=== PATIENT | male | born 1960 | race Caucasian/White ===

== ENCOUNTER 2016-08-14 09:30 | Outpatient (CLI) | payer OTHER ==
[~2016-08-14] VITALS: Ht 175.3 cm; Wt 68.0 kg
[~2016-08-14 09:30] MED LIST: ASPI-992 PO; ASPI1TAB PO; CYCL10TA45 GT
[2016-08-14] MEDS ORDERED: BUPIVACAINE 0.5% 30 ML (SENSORCAINE) VIAL ONE (09:32)
[2016-08-14] MEDS ORDERED: LIDOCAINE 1% INJ 20 ML (XYLOCAINE) VIAL ONE (09:32)
[2016-08-14] MEDS ORDERED: TRIAMCINOLONE ACET (KENALOG-40) 40 MG/ML 1 ML VIAL ONE (09:32)
[2016-08-14 09:43] VITALS: BP 135/76
[2016-08-14 10:36] VITALS: BP 139/84
--- NOTE | 2016-08-14 12:46 | Pain Medicine-Procedure ---
Procedure Pre-Op/Post-Op Diagnosis Diagnosis: spondylosis without myelopathy, thoracic Indications for Operation Mid back pain Attending Surgeon Stacy Procedure Date of Service: Aug 14, 2016 PROCEDURE: Bilateral thoracic medial branch block at T8 to T11 under fluoroscopic guidance. PROCEDURE DETAILS: After obtaining an informed consent from the patient, the patient's chart was reviewed. The patient was brought to the procedure room and placed in a prone position. The back was prepped with antiseptic solution, and under fluoroscopic guidance the junction of the superior articular process and transverse process on the right at T8, T9, T10, and T11 was identified. 0.5 cc of 1% Lidocaine was used to anesthetize the skin. A 25 gauge 3.5 inch spinal needle was inserted through the skin under fluoroscopic guidance until it came in touch with the bone at the junction between the superior articular process and transverse process at each level. The exact steps were repeated for the left side. After needle aspiration,80 mg of kenalog total was injected in equal alliquots followed by 0.5 cc of 0.5% bupivacaine at each. The patient tolerated the procedure well. The needles were flushed and removed, and a Band- Aide was applied. Complications None ELBA MCMAHAN MD Aug 14, 2016 12:46 pm
== END 2016-08-14 10:38 | disposition home or self-care (01) ==
LOC: CARD 09:30
PROVIDERS: ATTEND Pain Medicine Pain Medicine
DX: M47.814 Spondylosis without myelopathy or radiculopathy, thoracic region (principal); Z79.899 Other long term (current) drug therapy
CPT/HCPCS: 64490; 64491; 64492

== ENCOUNTER 2016-09-16 22:02 | Emergency (ER) | payer SELFPAY ==
[~2016-09-16] VITALS: Ht 175.3 cm; Wt 71.7 kg
[2016-09-16] MEDS ORDERED: morphine INJ 10 MG/ML 1ML (SYR OR VIAL) IM ONE (22:15)
--- NOTE | 2016-09-16 22:15 | ED Back Pain ---
General Chief Complaint: Back Problems Stated Complaint: BACK PAIN Source of Information: Patient Exam Limitations: No Limitations History of Present Illness Time Seen by Provider: 22:12 Initial Comments To ER with left-sided upper lumbar/lower thoracic back pain worse than usual for 2 days. This is been ongoing for many months. He sees Dr. Kumar and received an epidural steroid injection about 3 weeks ago. Denies fevers or chills. States that the pain chronically radiates down his left leg. He denies any recent injuries or any may have worsened his symptoms recently. No loss of bowel or bladder control. He is currently on Zanaflex, just finished a course of oral steroids he states, is on meloxicam. Location: Lumbar Spine Severity: Moderate Associated Symptoms: lower back pain Allergies and Home Medications Allergies Coded Allergies: No Known Drug Allergies (Unverified , 06/08/13) Home Medications Aspirin/Acetaminophen/Caffeine 1 Each Tablet 2 EACH PO PRN (Reported) Constitutional: see HPINo chills EENTM: see HPI Respiratory: no symptoms reported Cardiovascular: no symptoms reported Genitourinary: no symptoms reported Musculoskeletal: see HPI back pain Skin: no symptoms reported Past Kcbypjl-Kbyivz-Qcxnvf Hx Patient Social History Alcohol Use: Denies Use Recreational Drug Use: No Smoking Status: Current Everyday Smoker Type Used: Cigarettes Recent Foreign Travel: No Contact w/Someone Who Travel: No Recent Hopitalizations: No Surgeries HX Surgeries: Yes (right foot surgery) Respiratory Hx Respiratory Disorders: No Cardiovascular Hx Cardiac Disorders: No Neurological Hx Neurological Disorders: No Reproductive System Hx Reproductive Disorders: No Genitourinary Hx Genitourinary Disorders: No Gastrointestinal Hx Gastrointestinal Disorders: No Musculoskeletal Hx Musculoskeletal Disorders: Yes (dgenerative arthritis) Musculoskeletal Disorders: Chronic Back Pain Endocrine Hx Endocrine Disorders: No HEENT HX ENT Disorders: No Cancer Hx Cancer: No Psychosocial Hx Psychiatric Problems: No Integumentary HX Skin/Integumentary Disorder: No Physical Exam Vital Signs Capillary Refill : General Appearance: No Apparent Distress WD/WN HEENT: PERRL/EOMI TMs Normal Neck: Full Range of Motion Normal Inspection Respiratory: No Accessory Muscle Use No Respiratory Distress Gastrointestinal: Normal Bowel Sounds Non Tender Soft Back: Normal InspectionNo Decreased Range of Motion, No Vertebral Tenderness Extremity: Normal Capillary Refill Normal Inspection Neurologic/Psychiatric: Alert Oriented x3 Skin: Normal Color Warm/Dry Progress/Results/Core Measures Results/Orders My Orders Orders-TUTTLE,PETER J WHITE MIXING OPERATOR Morphine Injection (Morphine Injection (09/16/16 22:15) Departure Impression Impression: Primary Impression: Chronic back pain Qualified Code: M54.6 - Pain in thoracic spine Disposition: 01 HOME, SELF-CARE Condition: Stable Departure-Patient Inst. Decision time for Depature: 22:14 Referrals: JANE MUÑOZ DO (PCP) Primary Care Physician LISA WOLFE (Family) Primary Care Physician Patient Instructions: Low Back Pain (DC) Add. Discharge Instructions: 1. Call Dr. Kumar tomorrow for further guidance on pain control 2. Continue current medications 3. All discharge instructions reviewed with patient and/or family. Voiced understanding. AMAURY TUTTLE APRN Sep 16, 2016 22:15
[2016-09-16 22:29] VITALS: BP 0/0
== END 2016-09-16 22:29 | disposition home or self-care (01) ==
LOC: EDUNIT# 22:02 → ER 22:04
DX: M54.6 Pain in thoracic spine (principal); M54.5 Low back pain; G89.29 Other chronic pain; F17.210 Nicotine dependence, cigarettes, uncomplicated; Z79.899 Other long term (current) drug therapy
CPT/HCPCS: 96372; 99281

== ENCOUNTER → 2016-09-26 | Outpatient (CLI) | payer SELFPAY ==
[~2016-09-26] MED LIST changes: +BACL20TA PO; +GABA300C PO; +METH4TAB PO; +TRAM50TA2 PO
--- OUTSIDE RECORDS SUMMARY | 2016-09-26 10:03 | XMS REPORT | Continuity of Care Document ---
Author Author [facility] Organization [facility] Address Unknown Phone Unavailable Care Team Providers Care Air Boatswain Name Role Phone [facility] PCP Insurance Providers Payer Name Policy Number Subscriber Name Relationship Self Pay Behzad Meza 18 Self / Same As Patient Advance Directives Directive Response Recorded Date/Time Advance Directives No 09/16/16 10:05pm Health Care Power of [place] Laborer No 09/16/16 10:05pm Organ Donor Yes 09/16/16 10:05pm Resuscitation Status Full Code 09/16/16 10:05pm Chief Complaint and Reason for Visit Chief Complaint Back Problems Reason for Visit Chronic back pain Problems Active Problems Medical Problem Onset Date Status Abrasion Unknown Acute Chest pain Unknown Acute Chronic back pain Unknown Acute Headache Unknown Acute Medications Current Home Medications Medication Dose Units Route Directions Days/Qty Instructions Start Date Aspirin/Acetaminophen/Caffeine 1 Each 2 Each Oral As Needed 01/23/16 Past Home Medications Medication Directions Ordered Status Aspirin/Acetaminophen/Caffeine 1 Tab Tablet, 1 Tab Oral as needed for Discontinued Cyclobenzaprine Hcl 10 Mg Tablet, 10 Mg G Tube 08/15/13 Discontinued Social History Social History Problem Response Recorded Date/Time Alcohol Use Denies Use 01/23/2016 7:30am Recreational Drug Use No 01/23/2016 7:30am Recent Foreign Travel No 09/16/2016 10:05pm Recent Infectious Disease Exposure No 09/16/2016 10:05pm Hospitalization with Isolation Denies 09/16/2016 10:05pm Smoking Status Current Everyday Smoker 09/16/2016 10:05pm Do you dip or chew tobacco? No 01/23/2016 7:30am Type Used Cigarettes 09/16/2016 10:05pm Recent Hopitalizations No 09/16/2016 10:05pm Hospitalization with Isolation Denies 09/16/2016 10:05pm Query Response Start Date Stop Date Smoking Status Current Everyday Smoker Hospital Discharge Instructions No hospital discharge instructions. Plan of Care Discharge Date 09/16/16 10:29pm Disposition 01 HOME, SELF-CARE Condition at Discharge Stable Instructions/Education Provided Low Back Pain (DC) Prescriptions See Medication Section Referrals JANE MUÑOZ DO - Primary Care Physician LISA WOLFE - Primary Care Physician Additional Instructions/Education 1. Call Dr. Kumar tomorrow for further guidance on pain control 2. Continue current medications 3. All discharge instructions reviewed with patient and/or family. Voiced understanding. Functional Status No functional status results. Allergies, Adverse Reactions, Alerts No known allergies. Immunizations No immunization records. Vital Signs Acute Vital Signs Vital Response Date/Time Temperature (Fahrenheit) 97.7 degrees F (97.6 - 99.5) 09/16/2016 10:05pm Temperature (Calculated Celsius) 36.35736 degrees C (36.4 - 37.5) 09/16/2016 10:05pm Temperature Source Tympanic 09/16/2016 10:05pm Pulse Rate (adult) 0 bpm (60 - 90) 09/16/2016 10:29pm Respiratory Rate 0 bpm (12 - 24) 09/16/2016 10:29pm O2 Sat by Pulse Oximetry 0 % (88 - 100) 09/16/2016 10:29pm Blood Pressure 0/0 mm Hg 09/16/2016 10:29pm Blood Pressure Mean 106 mm Hg 09/16/2016 10:05pm Pain Numeric Pain Scale 8 09/16/2016 10:29pm Height (Feet) 5 feet 09/16/2016 10:05pm Height (Inches) 9 inches 09/16/2016 10:05pm Height (Calculated Centimeters) 175.562255 cm 09/16/2016 10:05pm Weight (Pounds) 158 pounds 09/16/2016 10:05pm Weight (Calculated Kilograms) 71.103778 kilograms 09/16/2016 10:05pm Capillary Refill Capillary Refill Less Than 3 Seconds 09/16/2016 10:05pm Height 5 ft 9 in Weight 158 lb Body Mass Index 23.3 kg/m^2 Results No known relevant diagnostic tests, laboratory data and/or discharge summary. Procedures No known history of procedures. Encounters Encounter Location Arrival/Admit Date Discharge/Depart Date Attending Provider Departed Emergency Room [facility] 09/16/16 10:04pm 08/04 10:29pm AMAURY TUTTLE APRN Recent Diagnosis
--- NOTE | 2016-09-26 11:40 | Diagnostic Imaging Report ---
PROCEDURE: MRI lumbar spine. TECHNIQUE: Multiplanar, multisequence MRI of the lumbar spine was performed without contrast. INDICATION: Back pain. FINDINGS: The alignment of the lumbar spine is normal. The vertebral body heights are well-maintained. There is no spondylolysis or spondylolisthesis. No fractures are identified. Conus medullaris is seen at L1 and is normal in appearance. There is some minimal annular bulging at L3-4 and L4-5. There is no focal disc extrusion or high-grade spinal stenosis. There is mild lower lumbar hypertrophic degenerative facet disease. The abdominal aorta is nonaneurysmal. There are no other focal soft tissue abnormalities. IMPRESSION: Mild annular bulging at L3-4 and L4-5 where there is slight effacement of the ventral thecal sac. There is also some lower lumbar hypertrophic degenerative facet disease. There is, however, no focal disc extrusion or evidence of high-grade spinal stenosis. Dictated by: Dictated on workstation # [id number]
--- NOTE | 2016-09-26 11:54 | Diagnostic Imaging Report ---
INDICATION: Chronic back and leg pain with numbness and tingling. Comparison is made with prior examination 04/11/16. FINDINGS: The alignment of thoracic spine is normal. The vertebral body heights are well-maintained. There is no fracture or traumatic subluxation. The visualized portions of the spinal cord are normal in signal intensity and morphology. Conus medullaris seen at L1 is normal in appearance. There is no focal disc extrusion or high-grade spinal stenosis. Subarachnoid space both anterior and posterior cord is well-maintained. There are otherwise mild degenerative changes. IMPRESSION: Mild lower thoracic spondylosis otherwise unremarkable Dictated by: Dictated on workstation # [id number]
== END ==
LOC: RAD 10:00
PROVIDERS: ATTEND Pain Medicine Pain Medicine
DX: M43.04 Spondylolysis, thoracic region (principal); M51.36 Other intervertebral disc degeneration, lumbar region
CPT/HCPCS: 72146; 72148

== ENCOUNTER 2016-11-28 21:40 | Emergency (ER) | payer SELFPAY ==
[~2016-11-28] VITALS: Ht 175.3 cm; Wt 71.7 kg
[~2016-11-28 21:40] MED LIST changes: -BACL20TA PO; -GABA300C PO; -METH4TAB PO; -TRAM50TA2 PO
[2016-11-28] MEDS ORDERED: BACL20TA PO (21:52)
[2016-11-28] MEDS ORDERED: GABA300C PO (21:52)
[2016-11-28] MEDS ORDERED: TRAM50TA2 PO (21:52)
[2016-11-28] MEDS ORDERED: METH4TAB PO (22:09)
--- NOTE | 2016-11-28 22:10 | ED Back Pain ---
General Chief Complaint: Back Problems Stated Complaint: BACK PAIN Nursing Triage Note: patient reports chronic back pain, patient reports he is being treated by a pain specialist and the medications he is prescribed isn't helping. Nursing Sepsis Screen: No Definite Risk Source of Information: Patient History of Present Illness Time Seen by Provider: 21:55 Initial Comments PT ARRIVES VIA POV FROM HOME C/O CHRONIC BACK PAIN NO INJURY NO PARESTHESIAS OR MOTOR DEFICITS STATES HIS BACK HURTS "FROM THE TOP OF MY SHOULDER BLADES DOWN TO MY TAIL BONE-- THE WHOLE THING" STATES PAIN RADIATES "AROUND TO MY MID SECTION AND DOWN BOTH MY LEGS" NO BOWEL OR BLADDER FUNCTION DIFFICULTIES SEES CLERK SPECIALIST MALIKA WOLFE AT [facility] AND ALSO SEES DR. MCMAHAN FOR PAIN MANAGEMENT PT HAS HAD STEROID INJECTIONS IN BACK--LAST ONE 3-4 MONTHS AGO PT STATES HE TAKES GABAPENTIN 900 MG TID, BACLOFEN 10 MG--2 TABS TID, TRAMADOL 50 MG TID, WELLBUTRIN AND AMITRIPTYLINE TOLD RN HE HAS FAILED A DRUG SCREEN IN THE PAST AND BROKE PAIN CONTRACT WITH [facility] AND CAN NO LONGER RECEIVE NARCOTICS FROM THERE. Allergies and Home Medications Allergies Coded Allergies: No Known Drug Allergies (Unverified , 06/08/13) Home Medications Aspirin/Acetaminophen/Caffeine 1 Each Tablet, 2 EACH PO PRN, (Reported) Baclofen 20 Mg Tablet, 20 MG PO TID, (Reported) Gabapentin 300 Mg Capsule, 900 MG PO TID, (Reported) Methylprednisolone 4 Mg Tab.ds.pk, 4 MG PO UD, #1 Prescribed by: MANJINDER JALLOH on 11/28/162208 Tramadol HCl 50 Mg Tablet, 50 MG PO TID, (Reported) Constitutional: no symptoms reported Respiratory: no symptoms reported Cardiovascular: no symptoms reported Gastrointestinal: no symptoms reported Genitourinary: no symptoms reported Musculoskeletal: see HPI Skin: no symptoms reported Psychiatric/Neurological: No Symptoms Reported Past Qiwykyh-Eilbla-Sppgmx Hx Patient Social History Alcohol Use: Denies Use Recreational Drug Use: No Smoking Status: Current Everyday Smoker (1 PPD) Type Used: Cigarettes Recent Foreign Travel: No Contact w/Someone Who Travel: No Recent Infectious Disease Expo: No Recent Hopitalizations: No Surgeries HX Surgeries: Yes (right foot surgery) Surgeries: Orthopedic Respiratory Hx Respiratory Disorders: No Cardiovascular Hx Cardiac Disorders: No Neurological Hx Neurological Disorders: No Reproductive System Hx Reproductive Disorders: No Genitourinary Hx Genitourinary Disorders: No Gastrointestinal Hx Gastrointestinal Disorders: No Musculoskeletal Hx Musculoskeletal Disorders: Yes Musculoskeletal Disorders: Degenerate Disk Disease, Arthritis, Chronic Back Pain Endocrine Hx Endocrine Disorders: No HEENT HX ENT Disorders: No Cancer Hx Cancer: No Psychosocial Hx Psychiatric Problems: No Integumentary HX Skin/Integumentary Disorder: No Blood Transfusions Hx Blood Disorders: No Physical Exam Vital Signs Vital Sign - Last 12Hours 11/28/16 21:47 Temp 98.2 Pulse 88 Resp 18 B/P (MAP) 130/92 Pulse Ox 96 Capillary Refill : Less Than 3 Seconds General Appearance: No Apparent Distress, WD/WN, Other (WALKS UPRIGHT AND MOVES WITHOUT DIFFICULTY. ) HEENT: Other (EDENTULOUS) Neck: Full Range of Motion, Normal Inspection, Non Tender, Supple Cardiovascular: Regular Rate, Rhythm, No Murmur, Normal Peripheral Pulses Respiratory: Normal Breath Sounds Peripheral Pulses: 1+ Dorsalis Pedis (R), 1+ Left Dors-Pedis (L) Back: Other (DIFFUSE TENDERNESS, TO ENTIRE BACK-EXAGGERATED PAIN RESPONSE. + STRAIGHT LEG RAISING BILATERALLY AT 45 DEGREES) Extremity: Normal Capillary Refill, Normal Inspection, Normal Range of Motion, Non Tender, No Calf Tenderness, No Pedal Edema, Other (DTR'S INTACT. ) Neurologic/Psychiatric: Alert, Oriented x3, No Motor/Sensory Deficits, Normal Mood/Affect, buttermaker helper II-XII Norm as Tested Skin: Normal Color, Warm/Dry Progress/Results/Core Measures Results/Orders My Orders Orders - MANJINDER JALLOH DO Methylprednisolone Sod Succ (Solu-Medrol (11/28/16 22:15) Vital Signs/I&O Vital Sign - Last 12Hours 11/28/16 21:47 Temp 98.2 Pulse 88 Resp 18 B/P (MAP) 130/92 Pulse Ox 96 Blood Pressure Mean: 105 Departure Impression Impression: Primary Impression: Chronic back pain Disposition: 01 HOME, SELF-CARE Condition: Stable Departure-Patient Inst. Referrals: [facility] (PCP/Family) Primary Care Physician Patient Instructions: MANAGING YOUR CHRONIC PAIN Add. Discharge Instructions: CONTINUE YOUR CURRENT MEDICATIONS PRESCRIBED FOLLOW UP WITH DR. MCMAHAN AND [facility] THIS WEEK FOR FURTHER CARE All discharge instructions reviewed with patient and/or family. Voiced understanding. Scripts Methylprednisolone (Medrol) 4 Mg Tab.ds.pk 4 MG PO UD, #1 PKG Prov: MANJINDER JALLOH DO 11/28/16 MANJINDER JALLOH DO November 28, 2016 22:09
[2016-11-28] MEDS ORDERED: methylPREDNISolone 125 MG (Solu-MEDROL) VIAL IM ONE (22:15)
[2016-11-28 22:20] VITALS: BP 130/92
== END 2016-11-28 22:19 | disposition home or self-care (01) ==
LOC: EDUNIT# 21:40 → ER 21:43
DX: M54.6 Pain in thoracic spine (principal); M54.5 Low back pain; G89.29 Other chronic pain; F17.210 Nicotine dependence, cigarettes, uncomplicated; Z79.899 Other long term (current) drug therapy; Z79.82 Long term (current) use of aspirin
CPT/HCPCS: 96372; 99281

== ENCOUNTER → 2019-04-18 | Outpatient (CLI) | payer MEDICARE, MEDICAID, OTHER ==
[~2019-04-18] MED LIST changes: +BACL20TA PO; +GABA300C PO; +METH4TAB PO; +TRAM50TA2 PO
--- NOTE | 2019-04-18 16:54 | Diagnostic Imaging Report ---
PROCEDURE: MRI lumbar spine. TECHNIQUE: Multiplanar, multisequence MRI of the lumbar spine was performed without contrast. DATE: April 18, 2019. COMPARISON: MRI lumbar spine September 26, 2016. INDICATION: 58-year-old male, low back pain and right leg pain. FINDINGS: The alignment of the lumbar spine is unremarkable. There is no evidence of a diffuse marrow infiltrating or replacing process. There is no concerning focal bone lesion. There is no compression deformity or other fracture. The visualized cord and conus medullaris is unremarkable and terminates at the L1 level. There is moderate disc height loss at L3-L4. There is very mild disc height loss at L4-L5 and L5-S1. There are multilevel very mild disc degenerative changes of the thoracolumbar spine. There is a 4 mm T2 hyperintense left renal lesion too small to characterize. T12-L1: There is a minimal diffuse disc bulge. The facet joints and ligamentum flavum are unremarkable. There is no foraminal stenosis. There is no spinal stenosis. L1-L2: There is very mild diffuse disc bulge. The facet joints and ligamentum flavum are unremarkable. There is no foraminal narrowing. There is no spinal canal stenosis. L2-L3: There is no disc bulge. The facet joints and ligamentum flavum are unremarkable. There is no foraminal narrowing. There is no spinal canal stenosis. L3-L4: There is mild diffuse disc bulge eccentric to the left. There is mild narrowing of the left lateral recess. The facet joints and ligamentum flavum are unremarkable. There is very mild left foraminal narrowing. There is no spinal canal stenosis. L4-L5: There is minimal diffuse disc bulge. There are mild bilateral facet degenerative changes without ligamentum flavum hypertrophy. There is mild right greater than left foraminal narrowing. There is no spinal canal stenosis. L5-S1: There is mild diffuse disc bulge eccentric to the left. There are mild right facet degenerative changes without ligamentum flavum hypertrophy. There is no high-grade foraminal narrowing. There is no spinal canal stenosis. IMPRESSION: 1. Multilevel disc and facet degenerative changes of the thoracolumbar spine as detailed specifically level by level above. Dictated by: Dictated on workstation # [id number]
== END ==
LOC: RAD 14:14
PROVIDERS: ATTEND Internal Medicine
DX: M51.17 Intervertebral disc disorders with radiculopathy, lumbosacral region (principal); M47.27 Other spondylosis with radiculopathy, lumbosacral region; M51.15 Intervertebral disc disorders with radiculopathy, thoracolumbar region; N28.9 Disorder of kidney and ureter, unspecified
CPT/HCPCS: 72148

== ENCOUNTER 2019-06-08 05:35 | Outpatient (CLI) | payer MEDICARE, MEDICAID, OTHER ==
[~2019-06-08] VITALS: Ht 175.3 cm; Wt 82.7 kg
[2019-06-08] MEDS ORDERED: GABA800T10 PO (11:11)
[2019-06-08] MEDS ORDERED: BUPR150T7 PO (11:11)
[2019-06-08] MEDS ORDERED: BACL10TA PO (11:11)
[2019-06-08] MEDS ORDERED: LOVA40TA2 PO (11:11)
[2019-06-08] MEDS ORDERED: AMIT50TA3 PO (11:11)
== END 2019-06-08 11:56 | disposition home or self-care (01) ==
LOC: PREOP 05:35
PROVIDERS: ATTEND Podiatrist Foot & Ankle Surgery
DX: Z01.818 Encounter for other preprocedural examination (principal)

== ENCOUNTER 2019-06-12 06:10 | Day surgery (SDC) | payer MEDICARE, MEDICAID, OTHER ==
[2019-06-12] VITALS (11 sets, daily range): BP systolic 101–118; BP diastolic 52–75
[~2019-06-12] VITALS: Ht 175.3 cm; Wt 77.5 kg
[~2019-06-12 06:10] MED LIST changes: +AMIT50TA3 PO; +BACL10TA PO; +BUPR150T7 PO; +GABA800T10 PO; +LOVA40TA2 PO
[2019-06-12] MEDS ORDERED: LACTATED RINGERS 1,000 ML IV PRN (06:36)
[2019-06-12] MEDS ORDERED: ceFAZolin INJECTION 1,000 MG in WATER (STERILE) FOR INJECTION 10 ML IV ONE (06:45)
[2019-06-12] MEDS ORDERED: LIDOCAINE 1% INJ 20 ML 20 ML VIAL ONE (07:12)
[2019-06-12] MEDS ORDERED: BUPIVACAINE 0.5% 30 ML (SENSORCAINE) VIAL ONE (07:12)
[2019-06-12] MEDS ORDERED: LIDOCAINE PF 2% 5 ML (XYLOCAINE) VIAL ONE (07:14)
[2019-06-12] MEDS ORDERED: SEVOFLURANE (ULTANE) 15 ML INHAL SOLN ONE ×5 (07:14→09:17)
[2019-06-12] MEDS ORDERED: proPOfol 200 MG/20 ML (DIPRIVAN) VIAL IV ONE (07:14)
[2019-06-12] MEDS ORDERED: fentaNYL INJECTION 100 MCG/2 ML AMP ONE (07:15)
[2019-06-12] MEDS ORDERED: MIDAZOLAM 2 MG/2 ML (VERSED) VIAL ONE (07:15)
[2019-06-12] MEDS ORDERED: ONDANSETRON 4 MG/2 ML (SDV) Z0FRAN ONE (07:17)
[2019-06-12] MEDS ORDERED: DEXAMETHASONE 10 MG/ML (DECADRON) 1 ML VIAL ONE ×2 (07:17→09:14)
--- NOTE | 2019-06-12 07:34 | Progress Note-Pre Operative ---
Pre-Operative Progress Note H&P Reviewed The H&P was reviewed, patient examined and no changes noted. Date Seen by Provider: Jun 12, 2019 Time Seen by Provider: 07:33 Date H&P Reviewed: Jun 12, 2019 Time H&P Reviewed: 07:33 Pre-Operative Diagnosis: Hallux Valgus left TIFFANIE DANIEL DPM Jun 12, 2019 07:34 POS
[2019-06-12] MEDS ORDERED: LACTATED RINGERS 1,000 ML IV SCH (09:29)
--- NOTE | 2019-06-12 09:29 | Progress Note-Post Operative ---
Post-Operative Progess Note Surgeon (s)/Datastage Consultant (s) Surgeon TIFFANIE DANIEL DPM Datastage Consultant: none Pre-Operative Diagnosis Hallux Valgus left Post-Operative Diagnosis Same Procedure & Operative Findings Date of Procedure 06/12/19 Procedure Performed/Findings Ale-Yobani type bunionectomy Anesthesia Type General Estimated Blood Loss Estimated blood loss (mL): Minimal Specimens/Packing Specimens Removed None TIFFANIE DANIEL DPM Jun 12, 2019 09:29 POS
[2019-06-12] MEDS ORDERED: HYDROcodone/APAP 5 MG/325 MG (LORTAB) TAB PO PRN (09:30)
[2019-06-12] MEDS ORDERED: CEPH500C PO (09:33)
[2019-06-12] MEDS ORDERED: ACHD5005 PO (09:33)
[2019-06-12] MEDS ORDERED: ONDANSETRON 4 MG/2 ML (SDV) Z0FRAN IVP PRN (09:45)
[2019-06-12] MEDS ORDERED: MEPERIDINE (DEMEROL) INJ 50 MG/ML IVP ONE (09:45)
[2019-06-12] MEDS ORDERED: morphine INJ 10 MG/ML 1ML (SYR OR VIAL) IVP ONE (09:45)
--- NOTE | 2019-06-12 10:33 | Diagnostic Imaging Report ---
EXAMINATION: Left foot at 09:50 a.m. INDICATION: Postop. FINDINGS: Two views were obtained. There are no prior studies available for comparison. There are postsurgical changes involving the first ray. Specifically, there has been an osteotomy of the base of the proximal phalanx of the great toe and of the neck of the first metatarsal. There is an orthopedic fixation wire securing the fracture fragments of the proximal phalanx along the medial aspect of the waist of the proximal phalanx. There are also two orthopedic fixation screws overlying the first metatarsal. The orthopedic hardware seems to be in good position. The medial aspect of the head of the first metatarsal has also been resected. There is some gas in the soft tissues along the medial and lateral aspects of the first metatarsophalangeal joint. This is most likely a sequela of the patient's recent surgery. There is no fracture, dislocation, or acute bony abnormality appreciated. The Lisfranc joint where visualized is unremarkable. There is a calcaneal spur. IMPRESSION: There are postoperative changes involving the first ray. There is no acute bony abnormality noted. Dictated by: Dictated on workstation # [id number]
--- NOTE | 2019-06-12 14:19 | Anesthesia-General Post-Op ---
General Patient Condition Mental Status/LOC: Same as Preop Cardiovascular: Satisfactory Nausea/Vomiting: Absent Respiratory: Satisfactory Pain: Controlled Complications: Absent Post Op Complications Complications None Follow Up Care/Instructions Patient Instructions None needed. Anesthesia/Patient Condition Patient Condition Patient is doing well, no complaints, stable vital signs, no apparent adverse anesthesia problems. No complications reported per nursing. CHANTE OHARA CRNA Jun 12, 2019 14:19 POS
--- NOTE | 2019-06-12 14:21 | OPERATIVE REPORT ---
DATE OF SERVICE: 06/12/2019 SURGEON: Tiffanie Daniel DPM. PREOPERATIVE DIAGNOSIS: Hallux abductovalgus metatarsal primus varus, left foot. POSTOPERATIVE DIAGNOSIS: Hallux abductovalgus metatarsal primus varus, left foot. PROCEDURE: Modified Ale -- Yobani, type bunionectomy, left foot. WOUND CLASS: Clean. ANESTHESIA: General. HEMOSTASIS: Pneumatic thigh tourniquet at 250 mmHg. INDICATIONS: This is a 58-year-old male presents complaining of a painful bunion, left foot. Conservative therapy is met with unsatisfactory results and the patient is agreeable to surgical intervention after risks and complications were discussed at length. No guarantees were extended to the patient and he is willing to proceed. DESCRIPTION OF PROCEDURE: The patient was brought back to the operating table, placed in secure supine position. Appropriate timeout was performed. General anesthetic was then induced. A pneumatic thigh tourniquet was placed on the left lower extremity over several layers of padding. Utilizing aseptic technique, 10 mL of 0.5% Marcaine was injected in a Dewey block of the left foot. The left foot was then prepped and draped in the normal sterile manner. Left foot was then elevated and allowed to exsanguinate after which the tourniquet was inflated to 250 mmHg. Attention was then directed to the dorsal aspect of the left first metatarsophalangeal joint where a 6 cm longitudinal linear incision was created overlying the first metatarsophalangeal joint area. The incision was deepened in the same plane with great care to identify and retract all vital neurovascular structures. All the necessary blood vessels were cauterized as encountered. The incision was deepened down to the capsule where a longitudinal capsulotomy was performed exposing the hypertrophic medial eminence to the first metatarsal head. This eminence was then reduced utilizing a power sagittal saw. Next, blunt dissection was carried out into the first intermetatarsal space where a lateral release was performed to the first metatarsophalangeal joint. This was a dissection of the conjoint tendon of the adductor hallucis as well as a lateral capsulorrhaphy as well as a release of the fibular sesamoidal ligament. Attention was then directed to the medial aspect of the first metatarsal where a 0.062 smooth K-wire was driven from medial to lateral acting as access guide for the following cuts. An osteotomy was performed with a plantar wedge from the midsection of the first metatarsal head plantarly and posteriorly and the long dorsal wedge from plantarly to dorsally proximally. This allowed for a long dorsal wedge of an Grant type of osteotomy for screw fixation. The capital fragment was translocated laterally and temporarily fixated in its corrected position utilizing a smooth 0.062 K-wire from dorsal to plantar. Next, utilizing a standard technique two 2.7 cortical screws were driven from dorsal to plantar across the dorsal arm of the osteotomy. Both these 2.7 screws were 16 mm of length. Excellent bony apposition and fixation was appreciated at this time. The head and diaphysis were contoured and smoothed with power sagittal saw and power bur. The wound was flushed with copious amounts of normal saline. Attention was then directed to the proximal phalanx where subperiosteal dissection was carried out to the proximal phalanx of the hallux. Wedge of bone was resected utilizing power sagittal saw with the base medial and lateral cortices held intact. A 28-gauge monofilament wire were passed through chief pilot hole to the dorsal medial aspect of the osteotomy securing the osteotomy in a closed position. Excellent bony apposition and fixation was appreciated at this time. The wound was flushed with copious amounts of normal saline throughout the procedure. The first metatarsophalangeal joint was then placed through its range of motion and found to be without crepitation or malalignment. The wound was then closed in layers. Deep closure was performed with 3-0 Vicryl, superficial was performed with 4-0 Vicryl, skin closure with 4-0 Prolene in a horizontal mattress type stitch. Postoperative injection consisted of 12 mL of 0.5% Marcaine injected in a local infusion to the surgical site as well as 10 mg dexamethasone into the first intermetatarsal space, left foot. Postoperative dressing consisted of Betadine soaked Adaptic, sterile 4 x 4, sterile Kerlix all secured with Coban wrap. The patient tolerated the anesthesia and procedure well, was transported from the operating room to the recovery area with vital signs stable and vascular status intact to all digits of the left foot. He is to follow up in my office in 10 days' period of time or sooner if necessary. He will be nonweightbearing with crutches in the interim. We expect him to be nonweightbearing for 4 weeks period of time. He was given a prescription for Keflex and Vicodin. Job ID: [id number] DocumentID: [id number] Dictated Date: 06/12/2019 09:41:47 Water Supervisor Date: 06/12/2019 14:20:35 Dictated By: TIFFANIE DANIEL DPM
== END 2019-06-12 11:35 | disposition home or self-care (01) ==
LOC: SDC 06:10
PROVIDERS: ATTEND Podiatrist Foot & Ankle Surgery
DX: M20.12 Hallux valgus (acquired), left foot (principal); M21.612 Bunion of left foot; M54.16 Radiculopathy, lumbar region; M19.90 Unspecified osteoarthritis, unspecified site; J44.9 Chronic obstructive pulmonary disease, unspecified; F32.5 Major depressive disorder, single episode, in full remission; Z87.891 Personal history of nicotine dependence; Z83.6 Family history of other diseases of the respiratory system; Z80.9 Family history of malignant neoplasm, unspecified
CPT/HCPCS: 73620; 87081

== ENCOUNTER → 2019-07-21 | Outpatient (CLI) | payer MEDICAID, MEDICARE, OTHER ==
[~2019-07-21] MED LIST changes: +ACHD5005 PO; +CEPH500C PO; -TRAM50TA2 PO; +TRM50T PO
--- NOTE | 2019-07-21 10:18 | Diagnostic Imaging Report ---
INDICATION: Pain COMPARISON: September 26, 2016 TECHNIQUE: Multiplanar, multisequence MR imaging of the thoracic spine is obtained without the use of intravenous contrast dated July 21, 2019. FINDINGS: Minimal apex right curvature of the thoracic spine, similar to the prior exam. No significant anterolisthesis or retrolisthesis. A few small scattered Schmorl's nodes are present. Otherwise, vertebral body heights are well-maintained. Bone marrow signal intensity is unremarkable. Mild disc desiccation within the lower thoracic spine, appearing similar to the prior exam. No severe disc space height loss. A 2.1 cm T2 hyperintensity is identified within the subcutaneous tissues and skin of the midline lower back at the level of T10-T11. This is increased in size since the prior examination. The paraspinal soft tissues are otherwise unremarkable. Multilevel small disc bulges and disc protrusions are present, particularly within the mid to lower thoracic spine. There is however no significant central canal stenosis. No significant neural foraminal stenosis with scattered facet joint degenerative changes. No abnormal signal within the spinal cord. IMPRESSION: No acute osseous abnormality with mild degenerative changes without significant central canal or neural foraminal stenosis. Subcutaneous and skin lesion midline at the level of T10-T11 having slightly increased since the prior examination. This is favored related to a sebaceous cyst. Recommend direct visualization and clinical correlation. Mild apex right curvature of the spine without significant anterolisthesis or retrolisthesis. Dictated by: Dictated on workstation # [id number]
== END ==
LOC: RAD 09:12
PROVIDERS: ATTEND Nurse Practitioner
DX: M47.814 Spondylosis without myelopathy or radiculopathy, thoracic region (principal); L98.9 Disorder of the skin and subcutaneous tissue, unspecified
CPT/HCPCS: 72146

== ENCOUNTER → 2020-08-06 | Outpatient (CLI) | payer MEDICARE, MEDICAID ==
[~2020-08-06] MED LIST changes: -BUPR150T7 PO; +BUPR150T8 PO
--- NOTE | 2020-08-06 08:53 | Diagnostic Imaging Report ---
EXAMINATION: CT Chest without contrast (lung screening). TECHNIQUE: Multiple contiguous axial images were obtained through the chest without the use of intravenous contrast according to lung cancer screening protocol. All CT scans use one or more of the following dose optimizing techniques: automated exposure control, MA and/or KvP adjustment based on a patient size and exam type, or iterative reconstruction. HISTORY: 62 pack year history of smoking. COMPARISON: None available. FINDINGS: Thyroid: The thyroid is normal. Mediastinum: The heart size is normal without significant pericardial effusion. The aorta is normal in caliber. No suspicious lymphadenopathy. Lungs and airways: Emphysema and scarring of the lungs without consolidation, pleural effusion, or pneumothorax. No suspicious pulmonary nodule. The airways are normal. Upper abdomen: The subphrenic structures are normal. Musculoskeletal: Degenerative changes of the spine without suspicious osseous lesion or compression fracture. IMPRESSION: 1. No suspicious pulmonary nodules. Recommend continued annual low-dose CT screening. 2. Emphysema. LUNG-RADS CATEGORY: 1 MODIFIER: S Dictated by: Dictated on workstation # [id number]
== END ==
LOC: RAD 08:14
PROVIDERS: ATTEND Internal Medicine
DX: Z12.2 Encounter for screening for malignant neoplasm of respiratory organs (principal); Z87.891 Personal history of nicotine dependence
CPT/HCPCS: 71271

== ENCOUNTER 2021-01-17 13:30 | Emergency (ER) | payer MEDICARE, MEDICAID ==
[~2021-01-17] VITALS: Ht 175 cm; Wt 77.5 kg
[~2021-01-17 13:30] MED LIST changes: +BUPR150T24 PO; -BUPR150T8 PO
[2021-01-17] MEDS ORDERED: RT-ALBUTEROL INHALER HFA (VENTOLIN HFA) 18 GM IH STA (15:22)
--- NOTE | 2021-01-17 15:35 | ED Respiratory ---
General Chief Complaint: Respiratory Problems Stated Complaint: SOB, FATIGUE, Nursing Triage Note: PATIENT C/O SOB X 3 DAYS WITH PRODUCTIVE COUGH. "IT FEELS LIKE I HAVE BRONCHITIS" AMBULITORY TO ROOM. Source: patient Exam Limitations: no limitations History of Present Illness Date Seen by Provider: Jan 17, 2021 Time Seen by Provider: 15:12 Initial Comments This 60-year-old gentleman presents to the emergency room with complaints of productive cough for about a week with progressive shortness of breath over the past few days. He states his shortness of breath is particularly with the expiratory phase. He also reports progressive chest discomfort with coughing and taking deep breaths. He has had this sensation multiple times in the past when treated for bronchitis. Allergies and Home Medications Allergies Coded Allergies: No Known Drug Allergies (Unverified , 06/08/13) Home Medications Amitriptyline HCl 50 Mg Tablet, 50 MG PO HS PRN for SLEEP, (Reported) Azithromycin 250 Mg Tablet, 250 MG PO UD TAKE 2 TABLETS ON DAY ONE THEN TAKE 1 TABLET DAILY FOR FOUR MORE DAYS Prescribed by: ROSALIE BOOTH on 01/17/211723 Baclofen 10 Mg Tablet, 10 MG PO TID, (Reported) Bupropion HCl 150 Mg Tab.er.24h, 150 MG PO DAILY, (Reported) Cephalexin 500 Mg Capsule, 1 CAP PO TID Prescribed by: TIFFANIE DANIEL on 06/12/19932 Gabapentin 800 Mg Tablet, 800 MG PO QID, (Reported) Hydrocodone Bit/Acetaminophen 1 Tab Tab, 1-2 TAB PO Q6H PRN for PAIN-MODERATE Prescribed by: TIFFANIE DANIEL on 06/12/19932 Lovastatin 40 Mg Tablet, 40 MG PO HS, (Reported) Prednisone 20 Mg Tab, 40 MG PO DAILY Prescribed by: ROSALIE BOOTH on 01/17/21 172 Patient Home Medication List Home Medication List Reviewed: Yes Review of Systems Review of Systems Constitutional: no symptoms reported EENTM: no symptoms reported Respiratory: see HPI Cardiovascular: no symptoms reported Gastrointestinal: no symptoms reported Genitourinary: no symptoms reported Musculoskeletal: see HPI Skin: no symptoms reported Psychiatric/Neurological: No Symptoms Reported Hematologic/Lymphatic: No Symptoms Reported Immunological/Allergic: no symptoms reported Past Ywczhvn-Rktibt-Uerzfy Hx Seasonal Allergies Seasonal Allergies: No Past Medical History Surgeries: Yes (right foot surgery, trach with 3 yrs old for croup) Orthopedic, Tonsillectomy, Tracheostomy Respiratory: Yes COPD Cardiac: Yes High Cholesterol Neurological: No Reproductive Disorders: No Genitourinary: No Gastrointestinal: No Musculoskeletal: Yes (degenerative arthritis) Degenerate Disk Disease, Arthritis, Chronic Back Pain Endocrine: No HEENT: No Cancer: No Psychosocial: Yes Depression Integumentary: No Blood Disorders: No Physical Exam Vital Signs - First Documented 01/17/21 14:37 Temp 36.3 Pulse 66 Resp 18 B/P (MAP) 139/104 (116) Pulse Ox 96 O2 Delivery Room Air Capillary Refill : Less Than 3 Seconds Height: 5'9" Weight: 158lbs. 0.0oz. 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, no motor/sensory deficits, alert Skin: normal color, warm/dry Progress/Results/Core Measures Suspected Sepsis SIRS Temperature: Pulse: 66 Respiratory Rate: 18 Laboratory Tests 01/17/21 14:49: White Blood Count 6.9 Blood Pressure 139 /104 Mean: 116 Laboratory Tests 01/17/21 14:49: Creatinine 0.82, INR Comment 1.0, Platelet Count 221, Total Bilirubin 0.6 Results/Orders Lab Results Laboratory Tests Test 01/17/21 14:49 01/17/21 14:50 Range/Units White Blood Count 6.9 4.3-11.0 10^3/uL Red Blood Count 4.46 4.30-5.52 10^6/uL Hemoglobin 13.5 13.3-17.7 g/dL Hematocrit 41 40-54 % Mean Corpuscular Volume 92 80-99 fL Mean Corpuscular Hemoglobin 30 25-34 pg Mean Corpuscular Hemoglobin Concent 33 32-36 g/dL Red Cell Distribution Width 13.4 10.0-14.5 % Platelet Count 221 130-400 10^3/uL Mean Platelet Volume 10.5 9.0-12.2 fL Immature Granulocyte % (Auto) 0 % Neutrophils (%) (Auto) 65 42-75 % Lymphocytes (%) (Auto) 24 12-44 % Monocytes (%) (Auto) 8 0-12 % Eosinophils (%) (Auto) 3 0-10 % Basophils (%) (Auto) 0 0-10 % Neutrophils # (Auto) 4.5 1.8-7.8 10^3/uL Lymphocytes # (Auto) 1.6 1.0-4.0 10^3/uL Monocytes # (Auto) 0.5 0.0-1.0 10^3/uL Eosinophils # (Auto) 0.2 0.0-0.3 10^3/uL Basophils # (Auto) 0.0 0.0-0.1 10^3/uL Immature Granulocyte # (Auto) 0.0 0.0-0.1 10^3/uL Prothrombin Time 13.8 12.2-14.7 SEC INR Comment 1.0 0.8-1.4 Activated Partial Thromboplast Time 31 24-35 SEC Sodium Level 139 135-145 MMOL/L Potassium Level 4.1 3.6-5.0 MMOL/L Chloride Level 107 98-107 MMOL/L Carbon Dioxide Level 22 21-32 MMOL/L Anion Gap 10 5-14 MMOL/L Blood Urea Nitrogen 9 7-18 MG/DL Creatinine 0.82 0.60-1.30 MG/DL Estimat Glomerular Filtration Rate > 60 BUN/Creatinine Ratio 11 Glucose Level 84 70-105 MG/DL Calcium Level 9.1 8.5-10.1 MG/DL Corrected Calcium 9.1 8.5-10.1 MG/DL Magnesium Level 2.0 1.6-2.4 MG/DL Total Bilirubin 0.6 0.1-1.0 MG/DL Aspartate Amino Transf (AST/SGOT) 14 5-34 U/L Alanine Aminotransferase (ALT/SGPT) 12 0-55 U/L Alkaline Phosphatase 54 40-136 U/L Myoglobin 41.2 10.0-92.0 NG/ML Troponin I < 0.028 <0.028 NG/ML Total Protein 6.8 6.4-8.2 GM/DL Albumin 4.0 3.2-4.5 GM/DL Influenza Type A (RT-PCR) Not Detected Not Detecte Influenza Type B (RT-PCR) Not Detected Not Detecte SARS-CoV-2 RNA (RT-PCR) Not Detected Not Detecte My Orders Orders - ROSALIE MCBRIDE MD Cbc With Automated Diff (01/17/21 15:22) Magnesium (01/17/21 15:22) Chest 1 View, Ap/Pa Only (01/17/21 15:22) Ekg Tracing (01/17/21 15:22) Comprehensive Metabolic Panel (01/17/21 15:22) Myoglobin Serum (01/17/21 15:22) Protime With Inr (01/17/21 15:22) Partial Thromboplastin Time (01/17/21 15:22) O2 (01/17/21 15:22) Monitor-Rhythm Ecg Trace Only (01/17/21 15:22) Ed Iv/Invasive Line Start (01/17/21 15:22) Troponin I (01/17/21 15:22) Albuterol Inhaler (Ventolin Hfa) (01/17/21 15:22) Covid 19 Inhouse Test (01/17/21 15:23) Influenza A And B By Pcr (01/17/21 15:23) Vital Signs/I&O 01/17/21 01/17/21 14:37 17:34 Temp 36.3 Pulse 66 70 Resp 18 18 B/P (MAP) 139/104 (116) 139/89 (116) Pulse Ox 96 96 O2 Delivery Room Air Room Air Capillary Refill : Less Than 3 Seconds Blood Pressure Mean: 116 Progress Note #1: Time: 15:34 Progress Note Patient was seen and examined. He appears to have bronchitis type symptoms. He has been vaccinated from Covid but he is being swabbed for Covid as a precaution. Chest x-ray and chest pain orders are being obtained. He is not tachycardic, hypoxic, or tender in the lower extremities. Progress Note #2: Progress Note Symptoms improved significantly with albuterol inhaler. Chest x-ray interpretation showed questionable markings in the lower lungs. Patient was started on prednisone and a azithromycin as a precaution. See discharge instructions for further discussion. ECG Initial ECG Impression Date: Jan 17, 2021 Initial ECG Impression Time: 15:41 Initial ECG Rate: 61 Initial ECG Rhythm: Normal Sinus Comment Sinus rhythm. Nondiagnostic ST changes, likely repolarization abnormality. No STEMI. Diagnostic Imaging Diagonstic Imaging: Xray Plain Films/CT/US/NM/MRI: chest Comments Chest x-ray viewed by me and report reviewed. See report below: NAME: BEHZAD MEZA [facility] REC#: [id number] PT STATUS: REG ER : 1960 PHYSICIAN: ROSALIE MCBRIDE MD ADMIT DATE: 01/17/21/ER Signed Date of Exam:01/17/21 CHEST 1 VIEW, AP/PA ONLY EXAMINATION: Chest 1 view HISTORY: Chest pain COMPARISON: CT chest from 08/06/2020. FINDINGS: Heart size and pulmonary vasculature are normal. There are mild streaky opacities within the medial lung bases. No pleural effusion or pneumothorax. Degenerative changes of the thoracic spine. Osseous structures are otherwise intact. IMPRESSION: 1. Bibasilar interstitial opacities which could represent atypical infection, atelectasis, or pulmonary edema in the appropriate clinical setting. Dictated by: Dictated on workstation # [id number] Dict: 01/17/21 1628 Trans: 01/17/21 1645 [id number] [id number] Interpreted by: AB ZAMORA DO Electronically signed by: AB ZAMORA DO 01/17/21 1645 Departure Impression Primary Impression: Acute bronchitis Qualified Codes: J20.9 - Acute bronchitis, unspecified Additional Impressions: COPD exacerbation Atypical chest pain Disposition: 01 HOME, SELF-CARE Condition: Improved Departure-Patient Inst. Decision time for Depature: 17:22 Referrals: [facility] [place] (PCP) Primary Care Physician GENIE ROSS MD (Family) Primary Care Physician Patient Instructions: Acute Bronchitis Add. Discharge Instructions: Discontinue any inhaled irritants including cigarette smoking, vaping, etc. Complete your antibiotics as prescribed. Use the prednisone as prescribed to help with wheezing. Use your inhaler 2 puffs every 4 hours as needed for wheezing or shortness of breath. Call with questions or concerns. Return to the ER if you have worsening symptoms. All discharge instructions reviewed with patient and/or family. Voiced understanding. Scripts Prednisone (Prednisone) 20 Mg Tab 40 MG PO DAILY, #8 TAB 0 Refills Prov: ROSALIE MCBRIDE MD 01/17/21 Azithromycin (Azithromycin) 250 Mg Tablet 250 MG PO UD, #6 TAB TAKE 2 TABLETS ON DAY ONE THEN TAKE 1 TABLET DAILY FOR FOUR MORE DAYS Prov: ROSALIE MCBRIDE MD 01/17/21 ROSALIE MCBRIDE MD Jan 17, 2021 15:35
[2021-01-17 15:51] LABS: BASOPHILS % (AUTO) 0 % (0-10); EOSINOPHILS # (AUTO) 0.2 10^3/uL (0.0-0.3); EOSINOPHILS % (AUTO) 3 % (0-10); HEMATOCRIT 41 % (40-54); HEMOGLOBIN 13.5 g/dL (13.3-17.7); LYMPHOCYTES # (AUTO) 1.6 10^3/uL (1.0-4.0); LYMPHOCYTES % (AUTO) 24 % (12-44); MEAN CORPUSCULAR HEMOGLOBIN 30 pg (25-34); MEAN CORPUSCULAR HGB CONC 33 g/dL (32-36); MEAN CORPUSCULAR VOLUME 92 fL (80-99); MEAN PLATELET VOLUME 10.5 fL (9.0-12.2); MONOCYTES # (AUTO) 0.5 10^3/uL (0.0-1.0); MONOCYTES % (AUTO) 8 % (0-12); NEUTROPHILS # (AUTO) 4.5 10^3/uL (1.8-7.8); NEUTROPHILS % (AUTO) 65 % (42-75); PLATELET COUNT 221 10^3/uL (130-400); WHITE BLOOD COUNT 6.9 10^3/uL (4.3-11.0)
[2021-01-17 16:03] LABS: CHLORIDE 107 MMOL/L (98-107); POTASSIUM 4.1 MMOL/L (3.6-5.0); SODIUM 139 MMOL/L (135-145)
[2021-01-17 16:04] LABS: PROTHROMBIN TIME PATIENT 13.8 SEC (12.2-14.7)
[2021-01-17 16:05] LABS: CALCIUM 9.1 MG/DL (8.5-10.1)
[2021-01-17 16:06] LABS: GLUCOSE 84 MG/DL (70-105); TOTAL PROTEIN 6.8 GM/DL (6.4-8.2)
[2021-01-17 16:07] LABS: CARBON DIOXIDE 22 MMOL/L (21-32)
[2021-01-17 16:08] LABS: BILIRUBIN,TOTAL 0.6 MG/DL (0.1-1.0)
[2021-01-17 16:09] LABS: ALKALINE PHOSPHATASE 54 U/L (40-136); CREATININE SERUM 0.82 MG/DL (0.60-1.30); GFR ESTIMATED > 60
[2021-01-17 16:10] LABS: BUN/CREATININE RATIO 11
[2021-01-17 16:12] LABS: ALANINE AMINOTRANSFERASE 12 U/L (0-55)
--- NOTE | 2021-01-17 16:32 | Diagnostic Imaging Report ---
EXAMINATION: Chest 1 view HISTORY: Chest pain COMPARISON: CT chest from 08/06/2020. FINDINGS: Heart size and pulmonary vasculature are normal. There are mild streaky opacities within the medial lung bases. No pleural effusion or pneumothorax. Degenerative changes of the thoracic spine. Osseous structures are otherwise intact. IMPRESSION: 1. Bibasilar interstitial opacities which could represent atypical infection, atelectasis, or pulmonary edema in the appropriate clinical setting. Dictated by: Dictated on workstation # [id number]
[2021-01-17] MEDS ORDERED: PRD20T PO (17:24)
[2021-01-17] MEDS ORDERED: AZIT250T12 PO (17:24)
[2021-01-17 17:34] VITALS: BP 139/89
== END 2021-01-17 17:34 | disposition home or self-care (01) ==
LOC: EDUNIT# 13:30 → ER 13:32
DX: J20.9 Acute bronchitis, unspecified (principal); J44.1 Chronic obstructive pulmonary disease with (acute) exacerbation; R07.89 Other chest pain; G89.29 Other chronic pain; F32.9 Major depressive disorder, single episode, unspecified; E78.00 Pure hypercholesterolemia, unspecified; M54.9 Dorsalgia, unspecified; Z20.822 Contact with and (suspected) exposure to COVID-19; Z79.891 Long term (current) use of opiate analgesic; Z79.899 Other long term (current) drug therapy
CPT/HCPCS: 36415; 71045; 80053; 83735; 83874; 84484; 85025; 85610; 85730; 87636; 93005; 93041

== ENCOUNTER 2021-05-29 18:06 | Emergency (ER) | payer MEDICARE, MEDICAID ==
[~2021-05-29] VITALS: Ht 175 cm; Wt 62.0 kg
[~2021-05-29 18:06] MED LIST changes: +AZIT250T12 PO; +PRD20T PO
--- NOTE | 2021-05-29 18:31 | ED Back Pain ---
General Stated Complaint: BACK PAIN Source of Information: Patient History of Present Illness Date Seen by Provider: May 29, 2021 Time Seen by Provider: 18:17 Initial Comments PT ARRIVES VIA POV FROM HOME PT STATES "SAME OLD SHIT" C/O CHRONIC BACK PAIN --PAIN FROM MID BACK DOWN TO TAILBONE NO RADIATION OF PAIN NO PARESTHESIAS OR MOTOR DEFICITS--NO SADDLE ANESTHESIA STATES LATELY HE HAS HAD SOME DIFFICULTY STARTING STREAM TO URINATE, BUT IS VOIDING A NORMAL AMOUNT NO PROBLEMS WITH BM'S--HAD NORMAL BM THIS AM NO ABDOMINAL PAIN NO NAUSEA/VOMITING NO FEVER STATES "I GOT CHRONIC BACK PAIN" "I GOT DISABILITY" "I GOT DEGENERATIVE ARTHRITIS IN MY BACK" STATES "I GOT A MIGRAINE ON TOP OF EVERYTHING ELSE" STATES HE CURRENTLY IS ON BACLOFEN, GABAPENTIN AND WELLBUTRIN FOR THIS PROBLEM--STATES HE HAS ONLY TAKEN ONE DOSE OF MEDICATIONS TODAY HAS NOT TAKEN ANYTHING ELSE FOR PAIN STATES "I WAS ON OPOIDS --THEY SAID I FAILED URINALYSIS WHICH IS BULLSHIT" "SO THEY TOOK ME OFF THEM" -STATES THIS WAS ABOUT 2 YEARS AGO STATES HE HAS SEEN MULTIPLE PHYSICIANS AT [place] FOR THIS PROBLEM IN THE PAST, BUT NO SURGERY WAS RECOMMENDED, PER PT. STATES HE SAW DR. ROSS LAST WEEK FOR ROUTINE FOLLOW UP OF THIS PROBLEM. PT STATES "IN THE PROCESS OF GETTING ANOTHER MRI" -STATES HIS LAST ONE WAS ABOUT [address] ROSS DID NOT CHANGE ANY OF HIS MEDICATIONS--"JUST THE SAME OLD SHIT" SYMPTOMS ARE NO DIFFERENT TODAY IN ANYWAY NO INJURY OR UNUSUAL ACTIVITY Other Comments PCP: DR. ROSS AT [facility] Allergies and Home Medications Allergies Coded Allergies: No Known Drug Allergies (Unverified , 06/08/13) Patient Home Medication List Home Medication List Reviewed: Yes Amitriptyline HCl (Amitriptyline HCl) 50 Mg Tablet, 50 MG PO HS PRN for SLEEP, (Reported) Entered as Reported by: OMAR VINCENT on 06/08/19 1111 Azithromycin (Azithromycin) 250 Mg Tablet, 250 MG PO UD Prescribed by: ROSALIE BOOTH on 01/17/21 1724 Baclofen (Baclofen) 10 Mg Tablet, 10 MG PO TID, (Reported) Entered as Reported by: OMAR VINCENT on 06/08/19 1111 Bupropion HCl (Bupropion Xl) 150 Mg Tab.er.24h, 150 MG PO DAILY, (Reported) Entered as Reported by: OMAR VINCENT on 06/08/19 1111 Cephalexin (Cephalexin) 500 Mg Capsule, 1 CAP PO TID Prescribed by: TIFFANIE DANIEL on 06/12/19 0933 Gabapentin (Gabapentin) 800 Mg Tablet, 800 MG PO QID, (Reported) Entered as Reported by: OMAR VINCENT on 06/08/19 1111 Hydrocodone Bit/Acetaminophen (Lortab 5 Mg Tablet) 1 Tab Tab, 1-2 TAB PO Q6H PRN for PAIN-MODERATE Prescribed by: TIFFANIE DANIEL on 06/12/19 0933 Lovastatin (Lovastatin) 40 Mg Tablet, 40 MG PO HS, (Reported) Entered as Reported by: OMAR VINCENT on 06/08/19 1111 Methylprednisolone (Medrol) 4 Mg Tab.ds.pk, 4 MG PO UD Prescribed by: MANJINDER JALLOH on 05/29/21 1854 Prednisone (Prednisone) 20 Mg Tab, 40 MG PO DAILY Prescribed by: ROSALIE BOOTH on 01/17/21 1724 Review of Systems Constitutional: no symptoms reported Respiratory: no symptoms reported Cardiovascular: no symptoms reported Gastrointestinal: no symptoms reported Genitourinary: see HPI Musculoskeletal: see HPI Skin: no symptoms reported Psychiatric/Neurological: No Symptoms Reported Past Fvcrkud-Qufwgw-Treolv Hx Patient Social History Tobacco Use?: Yes (1 PPD) Tobacco type used: Cigarettes Smoking Status: Current Someday Smoker Substance use?: Yes Substance type: Opiates/Opioids, Marijuana Seasonal Allergies Seasonal Allergies: No Past Medical History Surgeries: Yes (right foot surgery, trach with 3 yrs old for croup) Orthopedic, Tonsillectomy, Tracheostomy Respiratory: Yes COPD Cardiac: Yes High Cholesterol Neurological: Yes Headaches /Migraines Reproductive Disorders: No Genitourinary: No Gastrointestinal: No Musculoskeletal: Yes ("DEGENERATIVE ARTHRITIS" --BACK, SHOULDERS, KNEES) Degenerate Disk Disease, Arthritis, Chronic Back Pain Endocrine: No HEENT: No Cancer: No Psychosocial: Yes Depression Integumentary: No Blood Disorders: No Physical Exam Vital Signs Vital Signs - First Documented 05/29/21 18:17 Temp 36.0 Pulse 69 Resp 16 B/P (MAP) 161/112 (128) Pulse Ox 98 O2 Delivery Room Air Capillary Refill : Height, Weight, BMI Height: 5'9" Weight: 158lbs. 0.0oz. 71.832117qp; 25.00 BMI Method:Stated General Appearance: No Apparent Distress, WD/WN, Thin, Other (WALKS UPRIGHT AND MOVES QUICKLY WITHOUT DIFFICULTY. TALKS NON-STOP AT LENGTH. REEKS OF CIGARETTES) Neck: Full Range of Motion, Normal Inspection, Non Tender Cardiovascular: Regular Rate, Rhythm, No Edema, No Murmur, Normal Peripheral Pulses Respiratory: Normal Breath Sounds, No Accessory Muscle Use, No Respiratory Distress Gastrointestinal: Non Tender, Soft Back: Other (DIFFUSE BACK TENDERNESS FROM MID-THORACICS DOWN TO SACRUM--MARKEDLY EXAGGERATED PAIN RESPONSE--JERKS EVEN BEFORE HIS IS TOUCHED. DTR'S INTACT AND EQUAL--ALSO AN EXAGGERATED RESPONSE--JERKS BOTH LEGS WITH TESTING FOR PATELLAR REFLEXES BILATERALLY. + STRAIGHT LEG RAISING AT LESS THAN 30 DEGREES BILATERALLY--AGAIN A MARKEDLY EXAGGERATED PAIN RESPONSE. WHEN NOT BEING EXAMINED, PT BENDS OVER, TWISTS, ETC WITHOUT DIFFICULTY. ) Extremity: Normal Capillary Refill, Normal Inspection, Non Tender, No Calf Tenderness, No Pedal Edema Neurologic/Psychiatric: Alert, Oriented x3, No Motor/Sensory Deficits, Normal Mood/Affect, branch lending manager II-XII Norm as Tested, Other (DTR'S INTACT) Skin: Normal Color, Warm/Dry Progress/Results/Core Measures Results/Orders Lab Results Laboratory Tests Test 05/29/21 18:31 Range/Units Urine Color YELLOW Urine Clarity CLEAR Urine pH 6.0 5-9 Urine Specific [place] 1.015 L 1.016-1.022 Urine Protein NEGATIVE NEGATIVE Urine Glucose (UA) NEGATIVE NEGATIVE Urine Ketones NEGATIVE NEGATIVE Urine Nitrite NEGATIVE NEGATIVE Urine Bilirubin NEGATIVE NEGATIVE Urine Urobilinogen 0.2 < = 1.0 MG/DL Urine Leukocyte Esterase NEGATIVE NEGATIVE Urine RBC (Auto) NEGATIVE NEGATIVE Urine RBC NONE /HPF Urine WBC NONE /HPF Urine Crystals PRESENT H /LPF Urine Amorphous Sediment RARE MY URATES H /LPF Urine Bacteria NEGATIVE /HPF Urine Casts NONE /LPF Urine Mucus NEGATIVE /LPF Urine Culture Indicated NO Urine Opiates Screen NEGATIVE NEGATIVE Urine Oxycodone Screen NEGATIVE NEGATIVE Urine Methadone Screen NEGATIVE NEGATIVE Urine Propoxyphene Screen NEGATIVE NEGATIVE Urine Barbiturates Screen NEGATIVE NEGATIVE Ur Tricyclic Antidepressants Screen NEGATIVE NEGATIVE Urine Phencyclidine Screen NEGATIVE NEGATIVE Urine Amphetamines Screen NEGATIVE NEGATIVE Urine Methamphetamines Screen NEGATIVE NEGATIVE Urine Benzodiazepines Screen NEGATIVE NEGATIVE Urine Cocaine Screen NEGATIVE NEGATIVE Urine Cannabinoids Screen POSITIVE H NEGATIVE My Orders Orders - MANJINDER JALLOH DO Drug Screen Stat (Urine) (05/29/21 18:22) Ua Culture If Indicated (05/29/21 18:22) Vital Signs/I&O 05/29/21 18:17 Temp 36.0 Pulse 69 Resp 16 B/P (MAP) 161/112 (128) Pulse Ox 98 O2 Delivery Room Air Progress Progress Note : Progress Note GIVEN TORADOL AND NORFLEX IM Departure Impression Primary Impression: Chronic back pain Disposition: HOME, SELF-CARE Condition: Stable Departure-Patient Inst. Decision time for Depature: 18:53 Referrals: [facility] (PCP) Primary Care Physician GENIE ROSS MD (Family) Primary Care Physician Patient Instructions: MANAGING YOUR CHRONIC PAIN Add. Discharge Instructions: MOIST HEAT TO SORE AREAS AT 20 MINUTE INTERVALS CONTINUE YOUR REGULAR MEDICATIONS PRESCRIBED FOLLOW UP WITH DR. ROSS IN 2-3 DAYS FOR FURTHER CARE Scripts Methylprednisolone (Medrol) 4 Mg Tab.ds.pk 4 MG PO UD for 6 Days, #21 PKG PER DOSE PACK INSTRUCTIONS Prov: MANJINDER JALLOH DO 05/29/21 MANJINDER JALLOH DO May 29, 2021 18:31
[2021-05-29 18:35] LABS: BILIRUBIN,URINE NEGATIVE (NEGATIVE); CLARITY,URINE CLEAR; COLOR,URINE YELLOW; GLUCOSE, URINE (UA) NEGATIVE (NEGATIVE); KETONES,URINE NEGATIVE (NEGATIVE); LEUKOCYTE ESTERASE ,URINE NEGATIVE (NEGATIVE); NITRITE,URINE NEGATIVE (NEGATIVE); PROTEIN,URINE NEGATIVE (NEGATIVE)
[2021-05-29 18:43] LABS: AMORPHOUS SEDIMENT,UR RARE AMOR URATES /LPF; BACTERIA,URINE NEGATIVE /HPF
[2021-05-29 18:48] LABS: AMPHETAMINE SCREEN, URINE NEGATIVE (NEGATIVE); BARBITURATE SCREEN URINE NEGATIVE (NEGATIVE); BENZODIAZEPINES SCREEN URINE NEGATIVE (NEGATIVE); CANNABINOID SCREEN, URINE POSITIVE (NEGATIVE); COCAINE SCREEN URINE NEGATIVE (NEGATIVE); METHADONE STAT NEGATIVE (NEGATIVE); METHAMPHETAMINE SCREEN URINE S NEGATIVE (NEGATIVE); OPIATE SCREEN URINE NEGATIVE (NEGATIVE); OXYCODONE STAT NEGATIVE (NEGATIVE); PROPOXYPHENE STAT NEGATIVE (NEGATIVE); TRICYCLIC ANTIDEPRESSANTS SCRE NEGATIVE (NEGATIVE)
[2021-05-29] MEDS ORDERED: METH4TAB PO (18:54)
[2021-05-29 19:07] VITALS: BP 138/85
== END 2021-05-29 19:07 | disposition home or self-care (01) ==
LOC: EDUNIT# 18:06 → ER 18:08
DX: G89.29 Other chronic pain (principal); M54.6 Pain in thoracic spine; J44.9 Chronic obstructive pulmonary disease, unspecified; E78.00 Pure hypercholesterolemia, unspecified; F32.9 Major depressive disorder, single episode, unspecified; F17.210 Nicotine dependence, cigarettes, uncomplicated; Z79.899 Other long term (current) drug therapy; Z79.52 Long term (current) use of systemic steroids; Z79.891 Long term (current) use of opiate analgesic
CPT/HCPCS: 80306; 81000; 99282

== ENCOUNTER 2021-06-08 13:32 | Emergency (ER) | payer MEDICARE, MEDICAID ==
[~2021-06-08] VITALS: Ht 172 cm; Wt 63.0 kg
[2021-06-08] MEDS ORDERED: KETOROLAC 60 MG/2 ML VIAL IM ONE (13:45)
[2021-06-08] MEDS ORDERED: ORPHENADRINE 60 MG/2 ML (NORFLEX) AMP (ED ONLY) IM ONE (13:45)
[2021-06-08] MEDS ORDERED: MELO15TA14 PO (13:50)
--- NOTE | 2021-06-08 13:51 | ED Back Pain ---
General Chief Complaint: Back Problems Stated Complaint: BACK PAIN Source of Information: Patient Exam Limitations: No Limitations History of Present Illness Date Seen by Provider: Jun 08, 2021 Time Seen by Provider: 13:48 Initial Comments To ER with midline low back pain that occasionally radiates down the right leg to the mid thigh. No injury no fever no chills no loss of bowel or bladder control no numbness of genitals no history of cancer or IV drug use. This pain is chronic for him but worsening over the past few days. He was seen here the first of this month and given a steroid Dosepak which she states did not help his pain. He is also chronically on gabapentin and baclofen for his pain. He currently rates his pain at 12 out of 10 and walks briskly to room #6 without antalgic gait or assistive device. Location: Lumbar Spine Timing/Duration: Gone Now Severity: Moderate Pain/Injury Location: Back Associated Symptoms: lower back pain Allergies and Home Medications Allergies Coded Allergies: No Known Drug Allergies (Unverified , 06/08/13) Patient Home Medication List Home Medication List Reviewed: Yes Amitriptyline HCl (Amitriptyline HCl) 50 Mg Tablet, 50 MG PO HS PRN for SLEEP, (Reported) Entered as Reported by: OMAR VINCENT on 06/08/19 1111 Azithromycin (Azithromycin) 250 Mg Tablet, 250 MG PO UD Prescribed by: ROSALIE BOOTH on 01/17/21 1724 Baclofen (Baclofen) 10 Mg Tablet, 10 MG PO TID, (Reported) Entered as Reported by: OMAR VINCENT on 06/08/19 1111 Bupropion HCl (Bupropion Xl) 150 Mg Tab.er.24h, 150 MG PO DAILY, (Reported) Entered as Reported by: OMAR VINCENT on 06/08/19 1111 Cephalexin (Cephalexin) 500 Mg Capsule, 1 CAP PO TID Prescribed by: TIFFANIE DANIEL on 06/12/19 0933 Gabapentin (Gabapentin) 800 Mg Tablet, 800 MG PO QID, (Reported) Entered as Reported by: OMAR VINCENT on 06/08/19 1111 Hydrocodone Bit/Acetaminophen (Lortab 5 Mg Tablet) 1 Tab Tab, 1-2 TAB PO Q6H PRN for PAIN-MODERATE Prescribed by: TIFFANIE DANIEL on 06/12/19 0933 Lovastatin (Lovastatin) 40 Mg Tablet, 40 MG PO HS, (Reported) Entered as Reported by: OMAR VINCENT on 06/08/19 1111 Methylprednisolone (Medrol) 4 Mg Tab.ds.pk, 4 MG PO UD Prescribed by: MANJINDER JALLOH on 05/29/21 1854 Prednisone (Prednisone) 20 Mg Tab, 40 MG PO DAILY Prescribed by: ROSALIE BOOTH on 01/17/21 1724 Review of Systems Constitutional: see HPI EENTM: see HPI Respiratory: no symptoms reported Cardiovascular: no symptoms reported Genitourinary: no symptoms reported Musculoskeletal: see HPI, back pain Skin: no symptoms reported Psychiatric/Neurological: No Symptoms Reported Past Jfdolkk-Csyisg-Tsjreq Hx Immunizations Up To Date First/Initial COVID19 Vaccinat: OCTOBER 2020 Second COVID19 Vaccination Jose: OCTOBER 2020 Seasonal Allergies Seasonal Allergies: No Past Medical History Surgery/Hospitalization HX: CHRONIC BACK PAIN, ARTHRITIS Surgeries: Yes (right foot surgery, trach with 3 yrs old for croup) Orthopedic, Tonsillectomy, Tracheostomy Respiratory: Yes COPD Cardiac: Yes High Cholesterol Neurological: Yes Headaches /Migraines Reproductive Disorders: No Genitourinary: No Gastrointestinal: No Musculoskeletal: Yes ("DEGENERATIVE ARTHRITIS" --BACK, SHOULDERS, KNEES) Degenerate Disk Disease, Arthritis, Chronic Back Pain Endocrine: No HEENT: No Cancer: No Psychosocial: Yes Depression Integumentary: No Blood Disorders: No Physical Exam Vital Signs Capillary Refill : Height, Weight, BMI Height: 5'9" Weight: 158lbs. 0.0oz. 71.519777fm; 20.00 BMI Method:Stated General Appearance: No Apparent Distress, WD/WN Neck: Full Range of Motion, Normal Inspection Respiratory: No Accessory Muscle Use, No Respiratory Distress Gastrointestinal: Normal Bowel Sounds, Non Tender, Soft Back: Normal Inspection; No CVA Tenderness (L), No CVA Tenderness (R) Extremity: Normal Capillary Refill, Normal Inspection Neurologic/Psychiatric: Alert, Oriented x3 Skin: Normal Color, Warm/Dry Progress/Results/Core Measures Results/Orders My Orders Orders - AMAURY TUTTLE APRN Ketorolac Injection (Toradol Injection) (06/08/21 13:45) Orphenadrine Inj (Ed Only) (Norflex Inje (06/08/21 13:45) Departure Impression Primary Impression: Acute exacerbation of chronic low back pain Disposition: 01 HOME, SELF-CARE Condition: Stable Departure-Patient Inst. Decision time for Depature: 13:50 Referrals: GENIE ROSS MD (PCP/Family) Primary Care Physician Patient Instructions: Low Back Pain ED Scripts Meloxicam (Mobic) 15 Mg Tablet 15 MG PO DAILY, #14 TAB Prov: AMAURY TUTTLE APRN 06/08/21 AMAURY TUTTLE APRN Jun 08, 2021 13:51
[2021-06-08 14:06] VITALS: BP 142/83
== END 2021-06-08 14:06 | disposition home or self-care (01) ==
LOC: EDUNIT# 13:32 → ER 13:35
DX: G89.29 Other chronic pain (principal); M54.50 Low back pain, unspecified; J44.9 Chronic obstructive pulmonary disease, unspecified; E78.00 Pure hypercholesterolemia, unspecified; F32.9 Major depressive disorder, single episode, unspecified; Z79.899 Other long term (current) drug therapy
CPT/HCPCS: 99284

== ENCOUNTER → 2021-06-17 | Outpatient (CLI) | payer MEDICARE, MEDICAID ==
[~2021-06-17] MED LIST changes: +MELO15TA14 PO
--- NOTE | 2021-06-17 11:50 | Diagnostic Imaging Report ---
PROCEDURE: MRI lumbar spine. TECHNIQUE: Multiplanar, multisequence MRI of the lumbar spine was performed without contrast. INDICATION: Lumbar radiculopathy. COMPARISON: 04/18/2019 FINDINGS: 5 lumbar type vertebral bodies are assumed. Alignment of the lumbar spine is well maintained without significant anterolisthesis or retrolisthesis. Endplate degenerative changes are present, greatest at L1/L2 where there is predominantly fatty endplate degenerative changes present. Very minimal endplate marrow edema is present at L1/L2. Bone marrow signal intensity is otherwise unremarkable. No evidence of a new vertebral body compression deformity. 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 The paraspinal soft tissues are unremarkable. T12/L1: Mild facet joint degenerative changes. Mild disc space height loss. Tiny right paracentral disc protrusion without significant central canal or neural foraminal stenosis. L1/L2: Mild disc desiccation and disc space height loss. Minimal facet joint degenerative changes. Small diffuse disc bulge, eccentric to the right. There is resulting very minimal central canal stenosis with minimal right neural foraminal stenosis. No significant left neural foraminal stenosis. L2/L3: Minimal facet joint degenerative changes. No significant central canal or neural foraminal stenosis. L3/L4: Moderate disc space height loss, similar to the prior examination. Mild facet joint degenerative changes. Small diffuse disc bulge. There is resulting mild central canal stenosis with particular effacement of the left greater than right bilateral lateral recesses. This appears relatively similar to the prior examination. Mild left neural foraminal stenosis. No significant right neural foraminal stenosis. L4/L5: Mild bilateral facet joint degenerative changes. Disc space height loss. Diffuse disc bulge. There is resulting mild trefoil type central canal stenosis, appearing similar to the prior exam. Mild to moderate right neural foraminal stenosis and mild left neural foraminal stenosis. L5/S1: Mild disc space height loss. Right greater than left facet joint degenerative changes. Small diffuse disc bulge, eccentric to the left. There is resulting minimal effacement of the left lateral recess. Mild to moderate bilateral neural foraminal stenosis. IMPRESSION: No acute osseous abnormality with mild to moderate multilevel degenerative changes as described above. Overall appearance is relatively similar to the prior examination without severe central canal or neural foraminal stenosis present. Dictated by: Dictated on workstation # [id number]
== END ==
LOC: RAD 09:30
PROVIDERS: ATTEND Internal Medicine
DX: M47.27 Other spondylosis with radiculopathy, lumbosacral region (principal); M51.17 Intervertebral disc disorders with radiculopathy, lumbosacral region; M48.07 Spinal stenosis, lumbosacral region
CPT/HCPCS: 72148

== ENCOUNTER 2021-12-22 12:16 | Emergency (ER) | payer OTHER, MEDICAID ==
[~2021-12-22] VITALS: Ht 175.2 cm; Wt 63.4 kg
--- NOTE | 2021-12-22 12:41 | ED Back Pain ---
General Chief Complaint: Back Problems Stated Complaint: FALL LOW BACK PAIN Nursing Triage Note: PT AMBULATORY INTO ER WITHOUT OBVIOUS DISCOMFORT WITH COMPLAINT OF BACK PAIN. PT HAS CHRONIC BACK PAIN, BUT FELL LAST WEDNESDAY WHILE FISHING. PT STATES THAT HIS PRIMARY WONT GIVE HIM PAIN MEDICINE BECAUSE HE HAS FAILED SEVERAL URINE DRUG SCREENS. PT STATES THAT HES NOT HERE FOR OPIATES, BUT IF THATS WHAT HE IS TO GET HE WILL DAMN SURE TAKE THEM. PAIN RATED AT A 12/10 AND STATES THAT ITS WORSE THEN BEING SET ON FIRE. Source of Information: Patient Exam Limitations: No Limitations History of Present Illness Date Seen by Provider: Dec 22, 2021 Time Seen by Provider: 12:39 Initial Comments Patient is a 61-year-old male who presents the ED with buttock pain. Patient states he was fishing on fell backwards landing on his buttock. Patient states he lost his balance used his fishing pole to decrease the impact landed on a rock on his tailbone. He has had some pain and discomfort initially but this pain became worse over the past few days. He does take gabapentin and baclofen and extra strength Tylenol for chronic back pain. He is scheduled to get x-rays today and to follow-up with MRI with Dr. Vallejo this according to patient. He states he cannot tolerate the pain in his buttock at this time. Denies any swelling or bruising. Denies fever, chills, weight loss, bowel or urine incontinence, saddle paresthesia. Does report some cgpr-ehm-aqqeqeb sensation in the lower extremity that is chronic Allergies and Home Medications Allergies Coded Allergies: No Known Drug Allergies (Unverified , 06/08/13) Patient Home Medication List Home Medication List Reviewed: Yes Amitriptyline HCl (Amitriptyline HCl) 50 Mg Tablet, 50 MG PO HS PRN for SLEEP, (Reported) Entered as Reported by: MOAR VINCENT on 06/08/19 1111 Azithromycin (Azithromycin) 250 Mg Tablet, 250 MG PO UD Prescribed by: ROSALIE BOOTH on 01/17/21 1724 Baclofen (Baclofen) 10 Mg Tablet, 10 MG PO TID, (Reported) Entered as Reported by: OMAR VINCENT on 06/08/19 1111 Bupropion HCl (Bupropion Xl) 150 Mg Tab.er.24h, 150 MG PO DAILY, (Reported) Entered as Reported by: OMAR VINCENT on 06/08/19 1111 Cephalexin (Cephalexin) 500 Mg Capsule, 1 CAP PO TID Prescribed by: TIFFANIE DANIEL on 06/12/19 0933 Gabapentin (Gabapentin) 800 Mg Tablet, 800 MG PO QID, (Reported) Entered as Reported by: OMAR VINCENT on 06/08/19 1111 Hydrocodone Bit/Acetaminophen (Lortab 5 Mg Tablet) 1 Tab Tab, 1-2 TAB PO Q6H PRN for PAIN-MODERATE Prescribed by: TIFFANIE DANIEL on 06/12/19 0933 Hydrocodone/Acetaminophen (Hydrocodone-Acetamin 5-325 mg) 5 Mg-325 Mg Tablet, 1 TAB PO Q4H PRN for PAIN-MODERATE (5-7) Prescribed by: ROBB ROSENBERG on 12/22/21 1324 Lovastatin (Lovastatin) 40 Mg Tablet, 40 MG PO HS, (Reported) Entered as Reported by: OMAR VINCENT on 06/08/19 1111 Meloxicam (Mobic) 15 Mg Tablet, 15 MG PO DAILY Prescribed by: AMAURY TUTTLE on 06/08/21 1350 Methylprednisolone (Medrol) 4 Mg Tab.ds.pk, 4 MG PO UD Prescribed by: MANJINDER JALLOH on 05/29/21 1854 Prednisone (Prednisone) 20 Mg Tab, 40 MG PO DAILY Prescribed by: ROSALIE BOOTH on 01/17/21 1724 Review of Systems Constitutional: No chills, No diaphoresis EENTM: No hearing loss, No ear pain, No blurred vision, No double vision Respiratory: No cough, No dyspnea on exertion Cardiovascular: No chest pain Gastrointestinal: No abdominal pain, No diarrhea, No nausea, No vomiting Genitourinary: No decreased output, No discharge Musculoskeletal: back pain, joint pain, muscle pain Skin: No change in color, No change in hair/nails All Other Systems Reviewed Negative Unless Noted: Yes Past Joohbkh-Khtpdd-Wbpweh Hx Patient Social History Tobacco Use?: No Use of E-Cig and/or Vaping dev: No Substance use?: No Alcohol Use?: No Pt feels they are or have been: No Immunizations Up To Date Influenza Vaccine Up-to-Date: No; Not Current First/Initial COVID19 Vaccinat: MARCH Second COVID19 Vaccination Jose: OCTOBER Seasonal Allergies Seasonal Allergies: No Past Medical History Surgery/Hospitalization HX: CHRONIC BACK PAIN, ARTHRITIS Surgeries: Yes (right foot surgery, trach with 3 yrs old for croup) Orthopedic, Tonsillectomy, Tracheostomy Respiratory: Yes COPD Cardiac: Yes High Cholesterol Neurological: Yes Headaches /Migraines Reproductive Disorders: No Genitourinary: No Gastrointestinal: No Musculoskeletal: Yes ("DEGENERATIVE ARTHRITIS" --BACK, SHOULDERS, KNEES) Degenerate Disk Disease, Arthritis, Chronic Back Pain Endocrine: No HEENT: No Cancer: No Psychosocial: Yes Depression Integumentary: No Blood Disorders: No Physical Exam Vital Signs Vital Signs - First Documented 12/22/21 12:32 Temp 36.4 Pulse 84 Resp 20 B/P (MAP) 156/81 (106) Pulse Ox 98 O2 Delivery Room Air Capillary Refill : Less Than 3 Seconds Height, Weight, BMI Height: 5'9" Weight: 158lbs. 0.0oz. 71.063996xe; 20.00 BMI Method:Stated General Appearance: No Apparent Distress, WD/WN HEENT: PERRL/EOMI, TMs Normal, Normal ENT Inspection, Pharynx Normal Neck: Full Range of Motion, Normal Inspection, Non Tender, Supple Cardiovascular: Regular Rate, Rhythm, No Edema, No Gallop, No JVD, No Murmur Respiratory: Chest Non Tender, Lungs Clear, Normal Breath Sounds, No Accessory Muscle Use, No Respiratory Distress Gastrointestinal: Normal Bowel Sounds, No Organomegaly, No Pulsatile Mass, Non Tender Back: Other (Coccyx and sacrum tenderness. No swelling, erythema or ecchymosis. No lumbar paraspinal muscle tenderness. No lumbar midline tenderness.) Extremity: Normal Capillary Refill, Normal Inspection, Normal Range of Motion, Non Tender, No Calf Tenderness Neurologic/Psychiatric: Alert, Oriented x3, No Motor/Sensory Deficits, Normal Mood/Affect, ultrasonic tester II-XII Norm as Tested Skin: Normal Color, Warm/Dry Progress/Results/Core Measures Results/Orders My Orders Orders - ARRON JIMENEZ Sacrum And Coccyx (12/22/21 12:38) Lumbar Spine - 2-3 Views (12/22/21 12:38) Ketorolac Injection (Toradol Injection) (12/22/21 12:45) Orphenadrine Inj (Ed Only) (Norflex Inje (12/22/21 12:45) Medications Given in ED Current Medications Medications Dose Ordered Sig/Disha Route Start Time Stop Time Status Last Admin Dose Admin Ketorolac Tromethamine 30 mg ONCE ONCE IM 12/22/21 12:45 12/22/21 12:46 DC 12/22/21 13:10 30 MG Orphenadrine Citrate 60 mg ONCE ONCE IM 12/22/21 12:45 12/22/21 12:46 DC 12/22/21 13:10 60 MG Vital Signs/I&O 12/22/21 12/22/21 12:32 13:27 Temp 36.4 Pulse 84 79 Resp 20 20 B/P (MAP) 156/81 (106) 156/81 Pulse Ox 98 97 O2 Delivery Room Air Room Air Blood Pressure Mean: 106 Departure Communication (PCP) Patient was complaining pain around his sacrum. Patient fell on a rock. Tenderness to the buttock. No swelling, erythema or ecchymosis. X-rays were negative for obvious fracture. Was given dose of IM pain medication. Will discharge with a few days worth of pain medication. Outpatient follow-up. Schedule follow-up with Dr. Vallejo for an epidural in his lower back and MRI this . Return precaution were discussed. No neurological red flag findings Impression Primary Impression: Back pain Disposition: 01 HOME, SELF-CARE Condition: Stable Departure-Patient Inst. Decision time for Depature: 13:23 Referrals: GENIE ROSS MD (PCP/Family) Primary Care Physician Patient Instructions: Low Back Pain (DC) Scripts Hydrocodone/Acetaminophen (Hydrocodone-Acetamin 5-325 mg) 5 Mg-325 Mg Tablet 1 TAB PO Q4H PRN for PAIN-MODERATE (5-7), #6 TAB Prov: ARRON JIMENEZ 12/22/21 ARRON JIMENEZ Dec 22, 2021 12:41
[2021-12-22] MEDS ORDERED: KETOROLAC 60 MG/2 ML VIAL IM ONE (12:45)
[2021-12-22] MEDS ORDERED: ORPHENADRINE 60 MG/2 ML (NORFLEX) AMP (ED ONLY) IM ONE (12:45)
--- NOTE | 2021-12-22 13:06 | Diagnostic Imaging Report ---
EXAM: LUMBAR SPINE - 2-3 VIEWS INDICATION: Back pain. COMPARISON: MRI lumbar spine 06/17/2021. FINDINGS: Mild left apex lumbar curvature at the thoracolumbar junction. Moderate to advanced degenerative endplate changes at L1-L2. No fractures are identified. Visualized pelvis is intact. IMPRESSION: 1. No acute radiographic findings in the lumbar spine. 2. Spondylotic changes greatest at L1-L2, similar to the prior. Dictated by: Dictated on workstation # [id number]
--- NOTE | 2021-12-22 13:11 | Diagnostic Imaging Report ---
INDICATION: tailbone pain, fall. TECHNIQUE: AP and lateral views sacrum coccyx at 12:52 PM. CORRELATION STUDY: None FINDINGS: Sacrococcygeal alignment is anatomic. There is no evidence for an acute displaced sacrococcygeal fracture. SI joints appearing unremarkable. Partially visualized bilateral hip joints and lower lumbar spine are unremarkable apart from minimal degenerative changes at the L5-S1 level. IMPRESSION: 1. No evidence for an acute displaced sacrococcygeal fracture. Dictated by: Dictated on workstation # [id number]
[2021-12-22] MEDS ORDERED: ACHD5005 PO (13:23)
[2021-12-22 13:27] VITALS: BP 156/81
== END 2021-12-22 13:33 | disposition home or self-care (01) ==
LOC: EDUNIT# 12:16 → ER 12:19
DX: M54.50 Low back pain, unspecified (principal); W18.30XA Fall on same level, unspecified, initial encounter; Y93.89 Activity, other specified
CPT/HCPCS: 72100; 72220

== ENCOUNTER → 2021-12-24 | Outpatient (CLI) | payer OTHER, MEDICAID ==
--- NOTE | 2021-12-24 10:02 | Diagnostic Imaging Report ---
CLINICAL INDICATION: Patient with chronic neck pain. EXAM: X-ray of the cervical spine, multiple views including lateral flexion-extension views. COMPARISON: CT angiogram of the head/neck dated 06/08/2013. FINDINGS: There is no acute cervical spine fracture or dislocation. There are mild hypertrophic spurs throughout the cervical spine. There is mild facet arthropathy. There is no prevertebral soft tissue swelling. Odontoid views are unremarkable. Flexion-extension views show no significant motion of the cervical spine. IMPRESSION: 1: There is no acute cervical spine fracture or dislocation. There is no significant motion involving the cervical spinal on flexion-extension views. 2: There is mild cervical spine degenerative disease. Dictated by: Dictated on workstation # [id number]
== END ==
LOC: RAD 09:07
PROVIDERS: ATTEND Anesthesiology Pain Medicine
DX: M47.22 Other spondylosis with radiculopathy, cervical region (principal)
CPT/HCPCS: 72050

== ENCOUNTER 2022-04-22 05:40 | Outpatient (CLI) | payer MEDICARE, MEDICAID ==
[~2022-04-22] VITALS: Ht 175.3 cm; Wt 63.5 kg
[2022-04-23] MEDS ORDERED: RT-ALBUINH IH (15:17)
[2022-04-23] MEDS ORDERED: MIRT-69 PO (15:17)
[2022-04-23] MEDS ORDERED: ATOR20TA66 PO (15:17)
== END 2022-04-23 15:27 | disposition home or self-care (01) ==
LOC: PREOP 05:40
PROVIDERS: ATTEND Surgery
DX: Z01.818 Encounter for other preprocedural examination (principal)

== ENCOUNTER 2022-05-05 08:50 | Day surgery (SDC) | payer OTHER, MEDICAID ==
[~2022-05-05] VITALS: Ht 175.3 cm; Wt 63.5 kg
[~2022-05-05 08:50] MED LIST changes: +ATOR20TA66 PO; +MIRT-69 PO; +RT-ALBUINH IH
[2022-05-05] MEDS ORDERED: LACTATED RINGERS 1,000 ML IV STA (08:59)
[2022-05-05 09:05] VITALS: BP 118/73
[2022-05-05] MEDS ORDERED: PROPOFOL INJECTION 50 ML IV ONE (10:39)
[2022-05-05] MEDS ORDERED: proPOfol 200 MG/20 ML (DIPRIVAN) VIAL IV ONE (11:15)
--- NOTE | 2022-05-05 11:40 | Progress Note-Post Operative ---
Post-Operative Progess Note Surgeon (s)/Hcc Coders (s) Surgeon LALITO LOPEZ DO Hcc Coders: N/A Pre-Operative Diagnosis Hx of polyps, screening colonoscopy Post-Operative Diagnosis Colon Polyps Diverticulosis Procedure & Operative Findings Date of Procedure 05/05/22 Procedure Performed/Findings Colonoscopy with hot biopsies polypectomy x5 Snare polypectomy x3 Anesthesia Type per bleacher operator Estimated Blood Loss Estimated blood loss (mL): None Specimens/Packing Specimens Removed colon polyps x8 LALITO LOPEZ DO May 05, 2022 11:40
--- NOTE | 2022-05-05 11:41 | Discharge Inst-Simple/Standard ---
Discharge Inst-Standard Reconcile Patient Problems Problems Reviewed?: Yes Patient Instructions/Follow Up Plan of Care/Instructions/FU: f/u in [address] Abdi Activity as Tolerated: Yes Discharge Diet: Regular Diet (high fiber diet) LALITO ABDI DO May 05, 2022 11:41
[2022-05-05 11:43] VITALS: BP 115/74
[2022-05-05 11:48] VITALS: BP 131/84
[2022-05-05 11:53] VITALS: BP 125/79
[2022-05-05 11:55] VITALS: BP 125/79
[2022-05-05 12:35] VITALS: BP 125/79
--- NOTE | 2022-05-05 12:42 | Anesthesia-General Post-Op ---
MAC Patient Condition Mental Status/LOC: Same as Preop Cardiovascular: Satisfactory Nausea/Vomiting: Absent Respiratory: Satisfactory Pain: Controlled Complications: Absent Post Op Complications Complications None Follow Up Care/Instructions Patient Instructions None needed. Anesthesiology Discharge Order Discharge Order Patient is doing well, no complaints, stable vital signs, no apparent adverse anesthesia problems. No complications reported per nursing. CHANTE OHARA CRNA May 05, 2022 12:42
--- NOTE | 2022-05-05 19:37 | OPERATIVE REPORT ---
DATE OF SERVICE: 05/05/2022 PREOPERATIVE DIAGNOSIS: History of colon polyps. POSTOPERATIVE DIAGNOSES: Diverticulosis and colon polyps. SURGEON: Lalito Abdi DO ANESTHESIA: Per COMMERCIAL PROJECT MANAGER. ESTIMATED BLOOD LOSS: None. COMPLICATIONS: None. PROCEDURES PERFORMED: Colonoscopy with hot polypectomy x5 and snare polypectomy x3. INDICATIONS FOR PROCEDURE: The patient is a 61-year-old male with history of polyps. He understands risks and benefits of the procedure and wished to proceed. Consent was signed in the chart. DESCRIPTION OF PROCEDURE: The patient was taken to the endoscopy suite and placed in the left lateral recumbent position. Timeout was performed. Digital rectal exam was performed. No palpable polyps, masses or ulcerations. Scope was inserted in the rectum and advanced all the way to cecum with minimal difficulty. Prep was adequate. Scope was slowly retracted back in the cecum, two polyps were present, which hot biopsy polypectomy was performed. Scope was then continuously retracted back. In the ascending and transverse colon, no polyps, masses or ulcerations. In the splenic flexure, 3 polyps were present, which hot biopsy polypectomy was performed. Scope was then continuously retracted back in the descending colon, larger polyp was present, which snare polypectomy was performed. This was unable to be suctioned, so scope was withdrawn with the polyp and obtained. Scope was then reinserted to the point of the removal. Scope was then continuously retracted back into the descending colon, another large polyp was present, which snare polypectomy was performed. This then had to be withdrawn as well to be obtained. Scope was then reinserted into the rectum, advanced all the way to the descending colon polyp that was removed. It was then slowly retracted. Another polyp was present, which snare polypectomy was performed. This was suctioned for specimen. Noting diverticulosis also in the left colon. The scope was then slowly retracted back into the rectum, where it was also retroflexed noting no other pathology. Scope was returned to its normal position, slowly withdrawn until completely removed. The patient tolerated the procedure well without any complications and taken to the recovery room in stable condition. RECOMMENDATIONS: The patient will have repeat colonoscopy in one year due to multiple polyps and the size to make sure these have been eradicated. Further recommendations pending pathology results. He will follow up in the office in two weeks. Job ID: [id number] DocumentID: [id number] Dictated Date: 05/05/2022 11:39:35 Weekend Caregiver Date: 05/05/2022 19:35:54 Dictated By: LALITO ABDI DO
== END 2022-05-05 12:35 | disposition home or self-care (01) ==
LOC: ENDO 08:50
PROVIDERS: ATTEND Surgery
DX: Z12.11 Encounter for screening for malignant neoplasm of colon (principal); D12.0 Benign neoplasm of cecum; D12.4 Benign neoplasm of descending colon; D12.3 Benign neoplasm of transverse colon; D12.5 Benign neoplasm of sigmoid colon; K57.30 Diverticulosis of large intestine without perforation or abscess without bleeding; Z87.891 Personal history of nicotine dependence

== ENCOUNTER → 2023-03-24 | Outpatient (CLI) | payer MEDICARE, MEDICAID ==
[~2023-03-24] MED LIST changes: +ALBU8.5H6 IH; -RT-ALBUINH IH
--- NOTE | 2023-03-24 17:27 | Diagnostic Imaging Report ---
EXAMINATION: Lumbosacral spine. 2 or 3 views. HISTORY: Back pain with left leg radiculopathy. COMPARISON: 12/22/2021. FINDINGS: There is no acute fracture or dislocation of the lumbar spine. Alignment is anatomic. The vertebral body heights are well maintained. Mild degenerative changes are present in the lumbar spine, with marginal osteophytes and facet hypertrophy. The included soft tissues are unremarkable. IMPRESSION: 1. No acute fracture or dislocation in the lumbar spine. Dictated by: Dictated on workstation # [id number]
== END ==
LOC: RAD 13:04
PROVIDERS: ATTEND Family Medicine
DX: M54.40 Lumbago with sciatica, unspecified side (principal); R20.0 Anesthesia of skin
CPT/HCPCS: 72100

== ENCOUNTER 2023-03-30 12:22 | Emergency (ER) | payer MEDICARE, MEDICAID ==
[~2023-03-30] VITALS: Ht 175.2 cm; Wt 56.8 kg
--- NOTE | 2023-03-30 12:31 | ED Integumentary General ---
General Chief Complaint: Skin/Wound Problems Stated Complaint: LT FINGER LACERATION Source: patient Exam Limitations: no limitations History of Present Illness Date Seen by Provider: Mar 30, 2023 Time Seen by Provider: 12:29 Initial Comments Patient is a 62-year-old male who presents to the ED with a injury to his left middle finger. This occurred 30 minutes ago. Was working with scrap metal and was using a air bubble. The bubble kicked back and hit his left middle finger smashing it between another object. Reports a skin abrasion to the proximal nail of the left middle finger. Small little injury to the palmar side of the left middle finger. Pain with flexion at the DIP joint. No obvious nail involvement. Up-to-date with his tetanus within the past 5 years. Denies taking thing for pain. Patient use soap and water to clean out the finger. Bleeding controlled. Denies of any distal numbness and tingling obvious bone deformity. Pain with any type of movement Allergies and Home Medications Allergies Coded Allergies: tramadol (Unverified Allergy, Unknown, Itching, 03/30/23) Patient Home Medication List Home Medication List Reviewed: Yes Albuterol Sulfate (Ventolin Hfa) 1 Puff Puff, 2 PUFF IH Q4H PRN for SHORTNESS OF BREATH, (Reported) Entered as Reported by: GONZALEZ WELLS on 04/23/22 151 Atorvastatin Calcium (Atorvastatin Calcium) 20 Mg Tablet, 20 MG PO DAILY, (Reported) Entered as Reported by: GONZALEZ WELLS on 04/23/22 151 Baclofen (Baclofen) 10 Mg Tablet, 10 MG PO TID, (Reported) Entered as Reported by: OMAR VINCENT on 06/08/19 1111 Bupropion HCl (Bupropion Xl) 150 Mg Tab.er.24h, 150 MG PO DAILY, (Reported) Entered as Reported by: OMAR VINCENT on 06/08/19 1111 Gabapentin (Gabapentin) 800 Mg Tablet, 800 MG PO QID, (Reported) Entered as Reported by: OMAR VINCENT on 06/08/19 1111 Hydrocodone/Acetaminophen (Hydrocodone-Acetamin 5-325 mg) 5 Mg-325 Mg Tablet, 1 TAB PO Q4H PRN for PAIN-MODERATE (5-7) Prescribed by: ROBB ROSENBERG on 03/30/23 1315 Mirtazapine (Mirtazapine) 30 Mg Tablet, 30 MG PO DAILY, (Reported) Entered as Reported by: GONZALEZ WELLS on 04/23/22 1517 Review of Systems Review of Systems Constitutional: No chills, No diaphoresis EENTM: No ear pain, No blurred vision, No double vision Respiratory: No cough, No dyspnea on exertion Cardiovascular: No chest pain Gastrointestinal: No abdominal pain, No diarrhea, No nausea, No vomiting Genitourinary: No decreased output, No discharge Musculoskeletal: No back pain; joint pain, muscle pain Skin: change in color All Other Systems Reviewed Negative Unless Noted: Yes Past Wyfmofx-Cniibd-Rjtoic Hx Immunizations Up To Date First/Initial COVID19 Vaccinat: SEPTEMBER 2020 Second COVID19 Vaccination Jose: OCTOBER 2020 Third COVID19 Vaccination Date: SEPTEMBER 2020 Seasonal Allergies Seasonal Allergies: No Past Medical History Surgery/Hospitalization HX: CHRONIC BACK PAIN, ARTHRITIS Surgeries: Yes (right foot surgery, trach with 3 yrs old for croup) Orthopedic, Tonsillectomy, Tracheostomy Respiratory: Yes Chronic Bronchitis Currently Using CPAP: No Currently Using BIPAP: No Cardiac: Yes High Cholesterol Neurological: Yes Headaches /Migraines Reproductive Disorders: No Genitourinary: No Gastrointestinal: No Musculoskeletal: Yes ("DEGENERATIVE ARTHRITIS" --BACK, SHOULDERS, KNEES) Degenerate Disk Disease, Arthritis, Chronic Back Pain Endocrine: No HEENT: No Cancer: No Psychosocial: Yes Depression Integumentary: No Blood Disorders: No Physical Exam Vital Signs Vital Signs - First Documented 03/30/23 12:27 Temp 36.6 Pulse 67 Resp 18 B/P (MAP) 106/76 (86) Pulse Ox 100 Capillary Refill : General Appearance: WD/WN, no apparent distress HEENT: PERRL/EOMI, normal ENT inspection, TMs normal, pharynx normal Neck: non-tender, full range of motion, supple Cardiovascular: regular rate, rhythm, no edema, no gallop, no JVD Respiratory: chest non-tender, lungs clear, normal breath sounds, no respiratory distress Gastrointestinal: normal bowel sounds, non tender, soft Back: normal inspection, no CVA tenderness, no vertebral tenderness Extremities: other (Skin abrasion to the left distal middle finger proximal to the nailbed. Pain with flexion at the DIP joint. No obvious bone deformity. Neurovascular intact. 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 Finger fracture, finger abrasion. due to mechanism of injury x-ray was ordered. X-ray did did not note any acute fracture. Formal read by radiology did not note any acute fracture. Irrigated with normal saline and Shur cleans. Does have a superficial skin abrasion. No nail involvement. No sutures needed. Limited range of motion secondary to pain. Patient was placed in a finger splint. Neosporin twice a day. He is up-to-date on his tetanus. If increased redness or swelling to return back to ED. Splint for the next week. Orthopedic follow-up in 7 to 10 days as needed. Will discharge with few days worth of pain medication. Impression Primary Impression: Skin abrasion Additional Impression: Finger injury Disposition: 01 HOME, SELF-CARE Condition: Stable Departure-Patient Inst. Decision time for Depature: 13:14 Referrals: CLARENCE MCNEAL DO (PCP/Family) Primary Care Physician Patient Instructions: Abrasions ED Add. Discharge Instructions: Topical Neosporin twice a day. Finger splint for comfort. Take anti- inflammatories for pain. Hydrocodone as needed. If increased redness or swelling to return back to ED All discharge instructions reviewed with patient and/or family. Voiced understanding. Scripts Hydrocodone/Acetaminophen (Hydrocodone-Acetamin 5-325 mg) 5 Mg-325 Mg Tablet 1 TAB PO Q4H PRN for PAIN-MODERATE (5-7), #6 TAB Prov: ARRON JIMENEZ 03/30/23 ARRON JIMENEZ Mar 30, 2023 12:31
--- NOTE | 2023-03-30 12:58 | Diagnostic Imaging Report ---
INDICATION: Injury to left third finger. AP, oblique, and lateral views of the left third finger are obtained. FINDINGS: No fracture or acute bony abnormality is seen. There are diffuse degenerative changes throughout the interphalangeal joints. IMPRESSION: Diffuse degenerative changes with no acute bony abnormality. Dictated by: Dictated on workstation # [id number]
[2023-03-30] MEDS ORDERED: ACHD5005 PO (13:15)
[2023-03-30 13:28] VITALS: BP 114/71
== END 2023-03-30 13:28 | disposition home or self-care (01) ==
LOC: EDUNIT# 12:22 → ER 12:24
DX: S60.413A Abrasion of left middle finger, initial encounter (principal); W23.2XXA Caught, crushed, jammed or pinched between a moving and stationary object, initial encounter; Y99.0 Civilian activity done for income or pay
CPT/HCPCS: 29130; 73130